=== PATIENT | male | born 1950 | race African-American/Black ===

== ENCOUNTER 2021-10-24 13:35 | Inpatient (IN) | payer MEDICARE, MEDICAID, SELFPAY ==
[2021-10-24] VITALS (7 sets, daily range): BP systolic 114–135; BP diastolic 49–67; PULSE 95–115; RESP 18–22; TEMP 36.7–37.8; O2SAT 84–99; BMI 22.1
--- NOTE | ~2021-10-24 | XR_ITS ---
EXAMINATION: XR CHEST CLINICAL INFORMATION: SOB. COMPARISON: None TECHNIQUE: Frontal view of the chest was obtained. FINDINGS: The lungs are well-expanded and clear of acute pneumonic process. There is mild atelectatic changes in the lingula. The heart size and pulmonary vascularity is normal. There is mild levoscoliosis of dorsal spine. No lytic or sclerotic process. XR/XR chest 1V IMPRESSION: Expanded lungs with minimal scarring or atelectasis in the lingula. Mild levoscoliosis upper dorsal spine.
--- NOTE | ~2021-10-24 | XR_ITS ---
EXAMINATION: XR CHEST CLINICAL INFORMATION: Hypoxia. COMPARISON: Chest 10/24/2021 TECHNIQUE: Frontal view of the chest was obtained. FINDINGS: The lungs are well-expanded with patchy opacity in the left parahilar region middle lobe and bilateral lower lobes. Rest of lungs are clear. The heart size and pulmonary vascularity is normal. There is mild spondylosis dorsal spine. No lytic process. XR/XR chest 1V IMPRESSION: Patchy airspace opacity left midlung, left lower lobe and right lower lobe. There is no suggestion for pleural effusion.
--- NOTE | 2021-10-24 14:00 | ED.GENADULT ---
HPI - General Adult General Chief complaint: Upper Respiratory Symptoms Stated complaint: CHOKED EARLIER, AIRWAY CLEAR Time Seen by Provider: 10/24/21 14:00 Source: RN notes reviewed Mode of arrival: EMS Limitations: no limitations History of Present Illness HPI narrative: Patient from [facility] with history of dementia , depression, psychosis, cognitive deficit with history of seizures came as while eating kielbasa and and had milkshake choked on it and vomited thick mucus phlegm. Patient was COVID positive 09/14/2020 again positive on 09/22/2020 has not received COVID vaccine prior to today patient was doing better on arrival patient found to be hypoxic saturating in 80s at room air improved to 90% on 5 L patient DNR DNI Related Data Home Medications Medication Instructions Recorded Confirmed acetaminophen 325 mg tablet 650 mg PO BID 10/24/21 10/24/21 acetaminophen 325 mg tablet 650 mg PO Q4H PRN 10/24/21 10/24/21 divalproex 125 mg capsule,delayed 650 mg PO BEDTIME 10/24/21 10/24/21 release sprinkle divalproex 500 mg tablet,delayed 1,000 mg PO DAILY 10/24/21 10/24/21 release docusate sodium 100 mg capsule 100 mg PO BID 10/24/21 10/24/21 (Colace) levothyroxine 125 mcg tablet 125 mcg PO DAILY 10/24/21 10/24/21 magnesium hydroxide 400 mg/5 mL 30 ml PO DAILY PRN 10/24/21 10/24/21 oral suspension (Milk of Magnesia) metoprolol tartrate 25 mg tablet 12.5 mg PO BID 10/24/21 10/24/21 mirtazapine 30 mg tablet 30 mg PO BEDTIME 10/24/21 10/24/21 multivitamin 1 tab PO DAILY 10/24/21 10/24/21 omeprazole 20 mg tablet,delayed 20 mg PO DAILY 10/24/21 10/24/21 release phenytoin sodium extended 100 mg 100 mg PO BID 10/24/21 10/24/21 capsule risperidone 0.5 mg tablet 0.5 mg PO BEDTIME 10/24/21 10/24/21 risperidone 1 mg tablet (Risperdal) 1 mg PO BID 10/24/21 10/24/21 sertraline 50 mg tablet (Zoloft) 50 mg PO DAILY 10/24/21 10/24/21 tamsulosin 0.4 mg capsule 0.4 mg PO BEDTIME 10/24/21 10/24/21 Allergies Allergy/AdvReac Type Severity Reaction Status Date / Time No Known Allergies Allergy Unverified 05/18/20 18:53 [No Known Allergies*] Review of Systems Review of Systems: Yes Unobtainable due to mental status PMFSH Past Medical History Medical History Depression Hypothyroidism Seizure TBI (traumatic brain injury) Surgical History H/O thyroidectomy Social History Social History Advance Directives: No Advance Directives Information Provided: No Physical Exam ED Vital Signs: Vital Signs - 24 hr 10/24/21 14:11 10/24/21 14:15 10/24/21 15:00 Temperature 98.1 F Pulse Rate 110 H Respiratory Rate 18 Blood Pressure 122/67 Pulse Oximetry 84 L 90 L 85 L 10/24/21 16:00 10/24/21 16:14 Temperature Pulse Rate 115 H Respiratory Rate 22 H Blood Pressure Pulse Oximetry 88 L BMI result Body Mass Index 22.1 Appearance: Alert. And awake coughing frequently Eyes: PERRL ENT: Pharynx normal. Oral Mucosa moist Neck: Normal inspection. Neck supple. CVS: Normal heart rate and rhythm. Pulses normal. Respiratory: No respiratory distress. Equal air entry bilateral, bilateral diffuse rales Abdomen: Soft and nontender. Bowel sounds are present, no mass palpable, Skin: Skin warm and dry. Normal skin color. Normal skin turgor. Extremities: No lower extremity edema. No calf tenderness Neuro: Oriented X 3. Moving all 4 extremities Medical Decision Making MDM Narrative Medical decision making narrative: Patient not backing mg COVID with history of COVID on 09/14 came here for increased shortness of breath after choking on the food chest x-ray without any significant aspiration but showed bilateral chronic changes and minimal atelectasis in the lingula COVID-19 test came positive. Patient was hypoxic on arrival improved on oxygenation. Will admit patient for hypoxia possible aspiration pneumonia and COVID-19 Lab Data Lab results reviewed: Yes I reviewed the patient's lab results. Result diagrams: 10/24/21 14:23 10/24/21 16:05 Labs: Lab Results 10/24/21 10/24/21 10/24/21 Range/Units 14:23 14:23 14:23 WBC 11.7 H (4.8-10.8) X10*3/uL RBC 3.67 L (4.60-5.80) X10*6/uL Hgb 13.4 L (14.0-18.0) g/dl Hct 39.4 L (42.0-52.0) % MCV 107.4 H (80.0-98.0) fL MCH 36.5 H (27.0-33.0) pg MCHC 34.0 (31.0-36.0) g/dl RDW 15.9 (11.0-16.0) % Plt Count 269 (160-400) X10*3/uL MPV 9.8 (9.4-12.4) fL Immature Gran % (Auto) 1.6 H (0.0-0.4) % Neut % (Auto) 80.2 H (45-73) % Lymph % (Auto) 12.9 L (20-40) % [place] % (Auto) 4.1 (2-11) % Eos % (Auto) 0.9 (0-4) % Baso % (Auto) 0.3 (0-2) % Lymph # (Auto) 1.5 (1.2-4.9) X10*3/uL [place] # (Auto) 0.5 (0.1-1.2) X10*3/uL Eos # (Auto) 0.1 (0.0-0.4) X10*3/uL Baso # (Auto) 0.0 (0.0-0.2) X10*3/uL Abs Immat Gran (auto) 0.19 H (0.00-0.03) X10*3/uL Absolute Neuts (auto) 9.4 H (2.0-8.3) x10*3/uL Absolute Nucleated RBC 0.020 H (0.0-0.012) X10*3/uL Nucleated RBC % (auto) 0.2 (0.0-0.2) /100WBC Sodium (135-145) mmol/L Potassium (3.3-5.1) mmol/L Chloride (96-108) mmol/L Carbon Dioxide (22-29) mmol/L Anion Gap (12-20) BUN (9-16) mg/dL Creatinine (0.5-1.4) mg/dL Estim Creat Clear Calc Estimated GFR Random Glucose (60-115) mg/dL Calcium (8.4-10.2) mg/dL Total Bilirubin (0.0-1.0) mg/dL AST (5-37) U/L ALT (0-40) U/L Alkaline Phosphatase (39-117) U/L Troponin I High Sens 8.8 (<3.5-35.0) ng/L Total Protein (6.5-8.0) g/dL Albumin (3.5-5.0) g/dL COVID-19 (SRINIVASAN) Positive A (Negative) COVID-19 Clin Com See Note 10/24/21 Range/Units 16:05 WBC (4.8-10.8) X10*3/uL RBC (4.60-5.80) X10*6/uL Hgb (14.0-18.0) g/dl Hct (42.0-52.0) % MCV (80.0-98.0) fL MCH (27.0-33.0) pg MCHC (31.0-36.0) g/dl RDW (11.0-16.0) % Plt Count (160-400) X10*3/uL MPV (9.4-12.4) fL Immature Gran % (Auto) (0.0-0.4) % Neut % (Auto) (45-73) % Lymph % (Auto) (20-40) % [place] % (Auto) (2-11) % Eos % (Auto) (0-4) % Baso % (Auto) (0-2) % Lymph # (Auto) (1.2-4.9) X10*3/uL [place] # (Auto) (0.1-1.2) X10*3/uL Eos # (Auto) (0.0-0.4) X10*3/uL Baso # (Auto) (0.0-0.2) X10*3/uL Abs Immat Gran (auto) (0.00-0.03) X10*3/uL Absolute Neuts (auto) (2.0-8.3) x10*3/uL Absolute Nucleated RBC (0.0-0.012) X10*3/uL Nucleated RBC % (auto) (0.0-0.2) /100WBC Sodium 143 (135-145) mmol/L Potassium 4.3 (3.3-5.1) mmol/L Chloride 108 (96-108) mmol/L Carbon Dioxide 25 (22-29) mmol/L Anion Gap 14 (12-20) BUN 14 (9-16) mg/dL Creatinine 0.78 (0.5-1.4) mg/dL Estim Creat Clear Calc 78.6 Estimated GFR > 60 Random Glucose 136 H (60-115) mg/dL Calcium 9.1 (8.4-10.2) mg/dL Total Bilirubin 0.6 (0.0-1.0) mg/dL AST 17 (5-37) U/L ALT < 6 (0-40) U/L Alkaline Phosphatase 91 (39-117) U/L Troponin I High Sens (<3.5-35.0) ng/L Total Protein 7.6 (6.5-8.0) g/dL Albumin 3.6 (3.5-5.0) g/dL COVID-19 (SRINIVASAN) (Negative) COVID-19 Clin Com ECG Data Attestation: I personally reviewed and interpreted this ECG as follows: Interpretation: Sinus tachycardia heart rate 104 beats per minute LVH with ST T wave change no acute ischemia Discharge Plan Discharge Clinical Impression: Aspiration pneumonia, COVID-19, Acute respiratory failure with hypoxia Patient Disposition: Admitted As Inpatient Discharge Date/Time: 10/24/21 19:15
--- NOTE | 2021-10-24 14:11 | ECG_ITS ---
Test Reason : aspiration Blood Pressure : / mmHG Vent. Rate : 104 BPM Atrial Rate : 104 BPM P-R Int : 154 ms QRS Dur : 086 ms QT Int : 330 ms P-R-T Axes : 083 062 083 degrees QTc Int : 433 ms Sinus tachycardia Left ventricular hypertrophy with repolarization abnormality ( Pierce product ) Abnormal ECG When compared with ECG of 14-JAN-2015 10:16, No significant change was found Referred By: José Miguel Helton Electronically Signed By:SHALOM SAMANO
[2021-10-24 14:27] LABS: MANUAL DIFF FLAG NO
[2021-10-24 14:30] LABS: Basophils Percent Auto 0.3 % (0-2); Eosinophils Absolute Auto 0.1 X10*3/uL (0.0-0.4); Eosinophils Percent Auto 0.9 % (0-4); Hematocrit 39.4 % (42.0-52.0); Hemoglobin 13.4 g/dl (14.0-18.0); Imm Gran Abs Auto 0.19 X10*3/uL (0.00-0.03); Imm Gran Pct Auto 1.6 % (0.0-0.4); Lymphocytes Absolute Auto 1.5 X10*3/uL (1.2-4.9); Lymphocytes Percent Auto 12.9 % (20-40); Mean Corpuscular Hemoglobin 36.5 pg (27.0-33.0); Mean Corpuscular Volume 107.4 fL (80.0-98.0); Mean Platelet Volume 9.8 fL (9.4-12.4); Monocytes Absolute Auto 0.5 X10*3/uL (0.1-1.2); Monocytes Percent Auto 4.1 % (2-11); NRBC Pct Auto 0.2 /100WBC (0.0-0.2); Neutrophils Absolute Auto 9.4 x10*3/uL (2.0-8.3); Neutrophils Percent Auto 80.2 % (45-73); Platelet Count 269 X10*3/uL (160-400); Red Blood Count 3.67 X10*6/uL (4.60-5.80); Red Cell Distribution Width 15.9 % (11.0-16.0); White Blood Count 11.7 X10*3/uL (4.8-10.8)
--- NOTE | 2021-10-24 14:30 | PHA.MEDREC ---
Pharmacy Consult ? Medication Reconciliation Pharmacy has completed the medication reconciliation. Patient from [facility] with a medication list. Jennifer Parsons, PiedadD
--- NOTE | 2021-10-24 14:37 | PC.NURSE ---
Pt received from EMS: Pt hx of dementia, and AOX1. As per EMS, pt aspirated on kabosha and milkshake. Pt received having intermittent, strong white, mucous cough. Suction applied, but aspiration seems to be deeper. Pt also hypoxic upon arrival, pt placed on 5L N/C, and O2 saturation improved. Sinus Tachy noted and lungs with rhonchi noted. Pt abd soft and non-tender.
[2021-10-24 14:50] LABS: Troponin-I High Sensitivity 8.8 ng/L (<3.5-35.0)
[2021-10-24 14:57] LABS: COVID-19 Test Positive (Negative); IDNOW Serial# 55D5AD1C
[2021-10-24] MEDS: Albuterol/Iprat 2.5/0.5MG 3 ML AMPUL.NEB INHALE (16:12)
--- NOTE | 2021-10-24 16:46 | PM.IMHP ---
History of Present Illness Date of Service: 10/24/21 Attending physician on admission: Berna Saez Chief Complaint: Choked 71 year old man presenting from [facility] with history of dementia, came in after en episode of choking after eating kielbasa and a milkshake. Apparently he walso vomited thick mucus phlegm.? Patient was COVID positive?09/14/2020 again positive on?09/22/2020 and has not yet received COVID vaccine. He was found to be hypoxic on arrival with oxygen saturation in the 80's. He was placed on 5 liters and his oxygen was up to 90's. CXR showed some atelectasis. In the ED he was given Zosyn, albuterol and decadron. He will be admitted for further management of aspiration pneumonia. Review of Systems Review of Systems: Denies any recent fever chills or decrease in appetite respiratory denies any shortness of breath coverage production cardiovascular is adjustment of any PND or edema gastrointestinal denies any dysphagia abdominal pain nausea vomiting or diarrhea genitourinary denies any dysuria frequency or hematuria musculoskeletal denies any joint pain or swelling neuropsych denies any weakness or seizures all other systems reviewed are negative PMFSH Medical History (Updated 10/24/21 @ 17:12 by Rosie Coe NP) Depression Hypothyroidism Seizure TBI (traumatic brain injury) Pertinent family history: Unknown as patient has dementia Surgical History (Updated 10/24/21 @ 17:09 by Rosie Coe NP) H/O thyroidectomy Social History Advance Directives: No Advance Directives Information Provided: No Meds Allergies Allergy/AdvReac Type Severity Reaction Status Date / Time No Known Allergies Allergy Unverified 05/18/20 18:53 [No Known Allergies*] Active Medications: Current Medications Acetaminophen (Acetaminophen 325 Mg Tablet) 650 mg PO Q6H PRN PRN Reason: Pain, Mild (Pain Scale 1-3) Dexamethasone Sodium Phosphate (Dexamethasone Sod Phosphate 4 Mg/Ml Vial) 6 mg IVPUSH DAILY SHILA Heparin Sodium (Porcine) (Heparin Sodium,Porcine 5,000 Unit/Ml Vial) 5,000 unit SUBCUT Q12H SHILA Piperacillin Sod/Tazobactam (Sod 3.375 gm/ Sodium Chloride) 50 mls @ 100 mls/hr IV ONCE ONE Stop: 10/24/21 17:06 Piperacillin Sod/Tazobactam (Sod 3.375 gm/ Sodium Chloride) 50 mls @ 100 mls/hr IV Q6H [facility] Ondansetron HCl (Ondansetron Hcl 4 Mg/2 Ml Vial) 4 mg IVPUSH Q8H PRN PRN Reason: Nausea and Vomiting Sodium Chloride (0.9 % Sodium Chloride Flush 3 Ml Syringe) 3 ml IVFLUSH QSHIFT [facility] Home Medications Medication Instructions Recorded Confirmed Last Taken Type acetaminophen 325 mg tablet 650 mg PO BID 10/24/21 10/24/21 10/24/21 History acetaminophen 325 mg tablet 650 mg PO Q4H PRN 10/24/21 10/24/21 10/11/21 History divalproex 125 mg capsule,delayed 650 mg PO BEDTIME 10/24/21 10/24/21 10/23/21 History release sprinkle divalproex 500 mg tablet,delayed 1,000 mg PO DAILY 10/24/21 10/24/21 10/24/21 History release docusate sodium 100 mg capsule 100 mg PO BID 10/24/21 10/24/21 10/24/21 History (Colace) levothyroxine 125 mcg tablet 125 mcg PO DAILY 10/24/21 10/24/21 10/24/21 History magnesium hydroxide 400 mg/5 mL 30 ml PO DAILY PRN 10/24/21 10/24/21 05/14/21 History oral suspension (Milk of Magnesia) metoprolol tartrate 25 mg tablet 12.5 mg PO BID 10/24/21 10/24/21 10/24/21 History mirtazapine 30 mg tablet 30 mg PO BEDTIME 10/24/21 10/24/21 10/23/21 History multivitamin 1 tab PO DAILY 10/24/21 10/24/21 10/24/21 History omeprazole 20 mg tablet,delayed 20 mg PO DAILY 10/24/21 10/24/21 10/24/21 History release phenytoin sodium extended 100 mg 100 mg PO BID 10/24/21 10/24/21 10/24/21 History capsule risperidone 0.5 mg tablet 0.5 mg PO BEDTIME 10/24/21 10/24/21 10/23/21 History risperidone 1 mg tablet (Risperdal) 1 mg PO BID 10/24/21 10/24/21 10/24/21 History sertraline 50 mg tablet (Zoloft) 50 mg PO DAILY 10/24/21 10/24/21 10/24/21 History tamsulosin 0.4 mg capsule 0.4 mg PO BEDTIME 10/24/21 10/24/21 10/23/21 History Physical Exam Vital Signs and Narrative: Vital Signs: Last Vital Signs Temp 98.1 F 10/24/21 14:11 Pulse 115 H 10/24/21 16:14 Resp 22 H 10/24/21 16:14 BP 122/67 10/24/21 14:11 Pulse Ox 88 L 10/24/21 16:00 BMI result Body Mass Index 22.1 Appearing in no acute distress head is normocephalic atraumatic eyes pupils are PERRLA sclera is anicteric mouth throat mucous membranes are intact and moist neck is supple no lymphadenopathy, no JVD noted, no palpable masses lung sounds are clear to auscultation/dim heart regular rate rhythm, clear S1, S2 positive bowel sounds, abdomen is soft, nontender neuro patient is alert to person only Results Labs CBC and Chem 7: 10/24/21 14:23 10/24/21 14:23 Labs: Laboratory Results - last 24 hr 10/24/21 10/24/21 14:23 14:23 MCV 107.4 H MCH 36.5 H MCHC 34.0 RDW 15.9 Plt Count 269 MPV 9.8 Immature Gran % (Auto) 1.6 H Neut % (Auto) 80.2 H Lymph % (Auto) 12.9 L [place] % (Auto) 4.1 Eos % (Auto) 0.9 Baso % (Auto) 0.3 Lymph # (Auto) 1.5 [place] # (Auto) 0.5 Eos # (Auto) 0.1 Baso # (Auto) 0.0 Abs Immat Gran (auto) 0.19 H Absolute Neuts (auto) 9.4 H Absolute Nucleated RBC 0.020 H Nucleated RBC % (auto) 0.2 COVID-19 (SRINIVASAN) Positive A COVID-19 Clin Com See Note Imaging Radiologist's Impressions: Impressions Chest X-Ray 10/24/21 14:55 IMPRESSION: Expanded lungs with minimal scarring or atelectasis in the lingula. Mild levoscoliosis upper dorsal spine. Assessment and Plan (1) Aspiration pneumonia: Status: Acute Plan 71 year old man admitted after an episode of choking and maikol has aspiration pneumonia Acute hypoxic respiratory failure secondary to aspiration pneumonitis likely related to choking cover with zosyn follow cx speech evaluation supplemental oxygen Covid 19 Diagnosed 09/14/21 Decadron ordered late for remdesivir follow Hypothyroidism Continue levothyroxine Seizures continue dilantin seizure precautions GERD PPI Mental health continue home medications DVT prophylaxis with heparin Attending Dr. Jaime DNR Quality Stroke Does the patient have a stroke diagnosis?: No VTE Prior VTE?: No VTE Risk Level:: Medical - moderate - high VTE Device Contraindication: Treatment Not Indicated VTE Drug Contraindication: N/A - Med Ordered
[2021-10-24] MEDS: dexAMETHasone sod phosphate 4 MG/ML VIAL 6 MG IVPUSH (17:10)
[2021-10-24 17:16] LABS: Alanine Aminotransferase < 6 U/L (0-40); Albumin Level 3.6 g/dL (3.5-5.0); Alkaline Phosphatase 91 U/L (39-117); Anion Gap 14 (12-20); Aspartate Amino Transferase 17 U/L (5-37); Bilirubin Total 0.6 mg/dL (0.0-1.0); Blood Urea Nitrogen 14 mg/dL (9-16); Calcium 9.1 mg/dL (8.4-10.2); Carbon Dioxide 25 mmol/L (22-29); Chloride 108 mmol/L (96-108); Creatinine Clr Calc Pharmacy 78.6; Estimated Glomerular Filt Rate > 60; Glucose Random 136 mg/dL (60-115); Potassium 4.3 mmol/L (3.3-5.1); Sodium 143 mmol/L (135-145); Total Protein 7.6 g/dL (6.5-8.0)
[2021-10-24] MEDS: Piperacillin Sodium/Tazobactam 3.375 GM in 0.9 % Sodium Chloride 50 ML IV (17:26)
--- NOTE | 2021-10-24 17:36 | PC.NURSE ---
Verified with phlebotomy, B/Cx2 and lactic acid retrieved prior to IV ABT administration.
[2021-10-24 17:39] LABS: Lactic Acid 1.6 mmol/L (0.5-2.0)
[2021-10-24] MEDS: Heparin Sodium,Porcine 5,000 UNIT/ML VIAL 5000 UNIT SUBCUT (18:00)
--- NOTE | 2021-10-24 19:16 | PC.NURSE ---
Assumed care of pt at 1900, report given to inpatient RN shortly thereafter. Pt to floor in stable condition w/ all belongings, attached to portable monitor, 5L O2 via NC
[2021-10-25] VITALS (7 sets, daily range): BP systolic 111–140; BP diastolic 51–59; PULSE 78–98; RESP 16–20; TEMP 35.7–36.8; O2SAT 93–100
[2021-10-25] MEDS: 0.9 % Sodium Chloride Flush 3 ML SYRINGE IVFLUSH ×5 (00:37→21:35)
[2021-10-25] MEDS: Piperacillin Sodium/Tazobactam 3.375 GM in 0.9 % Sodium Chloride 50 ML IV ×5 (00:43→23:39)
[2021-10-25] MEDS: Acetaminophen 325 MG TABLET 650 MG PO (00:46)
[2021-10-25] MEDS: Heparin Sodium,Porcine 5,000 UNIT/ML VIAL 5000 UNIT SUBCUT ×2 (05:31→17:16)
[2021-10-25 06:22] LABS: Hemoglobin 13.1 g/dl (14.0-18.0); Mean Corpuscular HGB Conc 34.5 g/dl (31.0-36.0); Mean Corpuscular Hemoglobin 36.3 pg (27.0-33.0); Mean Corpuscular Volume 105.3 fL (80.0-98.0); Mean Platelet Volume 10.4 fL (9.4-12.4); Platelet Count 238 X10*3/uL (160-400); Red Blood Count 3.61 X10*6/uL (4.60-5.80); Red Cell Distribution Width 15.8 % (11.0-16.0); White Blood Count 16.5 X10*3/uL (4.8-10.8)
[2021-10-25 06:32] LABS: Anion Gap 17 (12-20); Blood Urea Nitrogen 19 mg/dL (9-16); Calcium 9.4 mg/dL (8.4-10.2); Carbon Dioxide 27 mmol/L (22-29); Chloride 106 mmol/L (96-108); Creatinine Clr Calc Pharmacy 68.9; Estimated Glomerular Filt Rate > 60; Glucose Random 142 mg/dL (60-115); Potassium 4.9 mmol/L (3.3-5.1); Sodium 145 mmol/L (135-145)
[2021-10-25 06:44] LABS: Band Neutrophils Percent 30 % (3-5); Lymphocytes Absolute Manual 0.5 X10*3/uL (1.2-4.9); Lymphocytes Percent Manual 3 % (20-40); Metamyelocytes Absolute 0.2 X10*3/uL; Metamyelocytes Percent 1 %; Neutrophils Absolute Manual 15.8 X10*3/uL (2.0-8.3); Neutrophils Percent Manual 66 % (45-73)
[2021-10-25 06:46] LABS: Hypochromasia 1+ (5-14) /OIF; Macrocytosis 2+ (15-30) /OIF; Platelet Estimate NORMAL (NORMAL); Platelet Morphology Comment NORMAL; RBC Morphology NOTED; Target Cells 1+ (5-14) /OIF; Toxic Vacuolation PRESENT
[2021-10-25] MEDS: dexAMETHasone sod phosphate 4 MG/ML VIAL 6 MG IVPUSH (07:59)
[2021-10-25] MEDS: Divalproex Sodium 500 MG TABLET.DR 1000 MG PO (11:05)
[2021-10-25] MEDS: Metoprolol Tartrate 12.5 MG HALFTAB PO ×2 (11:05→21:24)
--- NOTE | 2021-10-25 11:16 | PC.NURSE ---
some coughing with meds crushed in applesauce. Seems to do ok with thin liquids.
--- NOTE | 2021-10-25 12:40 | MHC.CM.PN ---
IMM 10/25/21 Male 72 DX Aspiration PNA Covid+ LTC resident @ [facility]. He is a DNR/DNI. The Molst is on Paper chart. It is documented no return to hospital. He choked while eating. [place] [facility] At the time of this documentation T/W has not spoken with family. A VM was left for his . Information for CM assessment and documentation was obtained from the patients EMR as well as paper chart w SNF documentation. DP return to [facility] via ambulance. A return call was requested to discuss discharge planning. The son was also unavailable via phone # on file. CM will follow.
--- NOTE | 2021-10-25 15:50 | P.PNIM_ITS ---
Subjective Subjective Date of Service: 10/25/21 <ROMERO Reeves - Last Filed: 10/25/21 16:06> 10/26/21 <Irving Mercado MD - Last Filed: 10/26/21 15:56> Interval History: seen and examined this morning follow up for respiratory failure awake and alert, able to answer some simple questions denies any pain or difficulty breathing at this time, unclear how reliable he is as historian, but appears comfortable and in no distress <ROMERO Reeves - Last Filed: 10/25/21 16:06> Review of Systems Review of Systems: Yes all other systems are reviewed and are negative <ROMERO Reeves - Last Filed: 10/25/21 16:06> Constitutional Constitutional: Denies chills and Denies fever(s) <ROMERO Reeves - Last Filed: 10/25/21 16:06> Cardiovascular Cardiovascular: Denies chest pain and Denies dyspnea <ROMERO Reeves - Last Filed: 10/25/21 16:06> Respiratory Respiratory: Reports cough and Denies dyspnea <ROMERO Reeves - Last Filed: 10/25/21 16:06> Gastrointestinal Gastrointestinal: Denies abdominal pain <ROMERO Reeves - Last Filed: 10/25/21 16:06> Physical Exam Vital Signs: Vital Signs: Last Vital Signs Temp 98.3 F 10/25/21 15:17 Pulse 88 10/25/21 15:17 Resp 20 10/25/21 15:17 BP 111/51 L 10/25/21 15:17 Pulse Ox 99 10/25/21 15:17 BMI result Body Mass Index 22.1 <ROMERO Reeves - Last Filed: 10/25/21 16:06> Const: Other: sleeping on entering, but easily arousable to verbal stimuli <ROMERO Reeves Last Filed: 10/25/21 16:06> General: comfortable, no acute distress and ill appearing <ROMERO Reeves Last Filed: 10/25/21 16:06> Nutritional Appearance: thin <ROMERO Reeves - Last Filed: 10/25/21 16:06> Orientation/consciousness: oriented to person <ROMERO Reeves - Last Filed: 10/25/21 16:06> Resp: Effort & Inspection: normal respiratory effort and no respiratory distress <ROMERO Reeves Last Filed: 10/25/21 16:06> GI: Inspection: No distended <ROMERO Reeves Last Filed: 0 10/25/21 16:06> Palpation (GI): Soft to palpation and nontender <ROMERO Reeves - Last Filed: 10/25/21 16:06> : Other: melton present <ROMERO Reeves Last Filed: 10/25/21 16:06> Neuro: General: oriented to person <ROMERO Reeves Last Filed: 10/25/21 16:06> Objective Data Active Medications Acetaminophen (Acetaminophen 325 Mg Tablet) 650 mg PO Q6H PRN PRN Reason: Pain, Mild (Pain Scale 1-3) Last Admin: 10/25/21 00:46 Dose: 650 mg Documented by: WAYLON Dexamethasone Sodium Phosphate (Dexamethasone Sod Phosphate 4 Mg/Ml Vial) 6 mg IVPUSH DAILY [facility] Last Admin: 10/25/21 07:59 Dose: 6 mg Documented by: ANDERS Divalproex Sodium (Divalproex Sodium 500 Mg Ana Luisa.) 1,000 mg PO DAILY [facility] Last Admin: 10/25/21 11:05 Dose: 1,000 mg Documented by: ANDERS Divalproex Sodium (Divalproex Sodium Sprinkles 125 Mg Cap) 625 mg PO BEDTIME [facility] Heparin Sodium (Porcine) (Heparin Sodium,Porcine 5,000 Unit/Ml Vial) 5,000 unit SUBCUT Q12H [facility] Last Admin: 10/25/21 05:31 Dose: 5,000 unit Documented by: OMAR Piperacillin Sod/Tazobactam (Sod 3.375 gm/ Sodium Chloride) 50 mls @ 100 mls/hr IV Q6H [facility] Last Infusion: 10/25/21 12:29 Dose: 0 mls/hr Documented by: ANDERS Levothyroxine Sodium (Levothyroxine Sodium 125 Mcg Tablet) 125 mcg PO DAILY [facility] Metoprolol Tartrate (Metoprolol Tartrate 12.5 Mg Halftab) 12.5 mg PO BID [facility]; Protocol Last Admin: 10/25/21 11:05 Dose: 12.5 mg Documented by: ANDERS Mirtazapine (Mirtazapine 30 Mg Tablet) 30 mg PO BEDTIME [facility] Omeprazole (Omeprazole 20 Mg Capsule.Dr) 20 mg PO DAILY [facility] Ondansetron HCl (Ondansetron Hcl 4 Mg/2 Ml Vial) 4 mg IVPUSH Q8H PRN PRN Reason: Nausea and Vomiting Phenytoin Sodium (Phenytoin Sodium Extended 100 Mg Capsule) 100 mg PO BID [facility] Risperidone (Risperidone 1 Mg Tablet) 1 mg PO BID [facility] Risperidone (Risperidone 0.5 Mg Tablet) 0.5 mg PO BEDTIME [facility] Sertraline HCl (Sertraline Hcl 50 Mg Tablet) 50 mg PO DAILY [facility] Sodium Chloride (0.9 % Sodium Chloride Flush 3 Ml Syringe) 3 ml IVFLUSH QSHIFT [facility] Last Admin: 10/25/21 08:01 Dose: 3 ml Documented by: ANDERS Tamsulosin HCl (Tamsulosin Hcl 0.4 Mg Capsule) 0.4 mg PO BEDTIME [facility] <ROMERO Reeves - Last Filed: 10/25/21 16:06> Labs CBC & Chem 7: : 10/26/21 06:05 10/26/21 06:05 <ROMERO Reeves - Last Filed: 10/25/21 16:06> Labs: Laboratory Results - last 24 hr 10/24/21 10/24/21 10/25/21 16:05 17:17 06:08 MCV 105.3 H MCH 36.3 H MCHC 34.5 RDW 15.8 Plt Count 238 MPV 10.4 Immature Gran % (Auto) Cancelled Neut % (Auto) Cancelled Lymph % (Auto) Cancelled [place] % (Auto) Cancelled Eos % (Auto) Cancelled Baso % (Auto) Cancelled Lymph # (Auto) Cancelled [place] # (Auto) Cancelled Eos # (Auto) Cancelled Baso # (Auto) Cancelled Abs Immat Gran (auto) Cancelled Absolute Neuts (auto) Cancelled Absolute Nucleated RBC 0.000 Nucleated RBC % (auto) 0.0 Neutrophils % (Manual) 66 Band Neutrophils % 30 H Lymphocytes % (Manual) 3 L Metamyelocytes % 1 Abs Neuts (Manual) 15.8 H Lymphocytes # (Manual) 0.5 L Metamyelocytes # 0.2 Toxic Vacuolation PRESENT Platelet Estimate NORMAL Plt Morphology Comment NORMAL RBC Morphology NOTED Hypochromasia 1+ (5-14) Macrocytosis 2+ (15-30) Target Cells 1+ (5-14) Anion Gap 14 Estim Creat Clear Calc 78.6 Estimated GFR > 60 Random Glucose 136 H Lactic Acid 1.6 Calcium 9.1 Total Bilirubin 0.6 AST 17 ALT < 6 Alkaline Phosphatase 91 Total Protein 7.6 Albumin 3.6 10/25/21 06:08 MCV MCH MCHC RDW Plt Count MPV Immature Gran % (Auto) Neut % (Auto) Lymph % (Auto) [place] % (Auto) Eos % (Auto) Baso % (Auto) Lymph # (Auto) [place] # (Auto) Eos # (Auto) Baso # (Auto) Abs Immat Gran (auto) Absolute Neuts (auto) Absolute Nucleated RBC Nucleated RBC % (auto) Neutrophils % (Manual) Band Neutrophils % Lymphocytes % (Manual) Metamyelocytes % Abs Neuts (Manual) Lymphocytes # (Manual) Metamyelocytes # Toxic Vacuolation Platelet Estimate Plt Morphology Comment RBC Morphology Hypochromasia Macrocytosis Target Cells Anion Gap 17 Estim Creat Clear Calc 68.9 Estimated GFR > 60 Random Glucose 142 H Lactic Acid Calcium 9.4 Total Bilirubin AST ALT Alkaline Phosphatase Total Protein Albumin <ROMERO Reeves - Last Filed: 10/25/21 16:06> Assessment and Plan (1) Acute respiratory failure with hypoxia: Status: Acute <ROMERO Reeves - Last Filed: 10/25/21 16:06> (2) Aspiration pneumonia: Status: Acute <ROMERO Reeves - Last Filed: 10/25/21 16:06> Plan 71 year old man admitted after an episode of choking and chinaley has aspiration pneumonia Acute hypoxic respiratory failure secondary to aspiration pneumonitis likely related to choking episode continue IV zosyn blood cultures pending speech evaluation pending supplemental oxygen, wean as tolerated Covid 19 Diagnosed 09/14/21, still testing positive can continue Decadron for now late for remdesivir ID consult pending leukocytosis r/t steroids ?HTN continue lopressor Hypothyroidism Continue levothyroxine Seizure disorder continue dilantin, depakote seizure precautions will check levels in am GERD continue omeprazole Mood continue sertraline, risperidone, remeron BPH continue flomax DVT prophylaxis with heparin Attending Dr. Mercado DNR/DNI <ROMERO Reeves - Last Filed: 10/25/21 16:06> Quality Stroke Does the patient have a stroke diagnosis?: No <ROMERO Reeves - Last Filed: 10/25/21 16:06> VTE Prior VTE?: No <ROMERO Reeves - Last Filed: 10/25/21 16:06> VTE Risk Level:: Medical - moderate - high <ROMERO Reeves - Last Filed: 10/25/21 16:06> VTE Device Contraindication: Treatment Not Indicated <ROMERO Reeves - Last Filed: 10/25/21 16:06> VTE Drug Contraindication: N/A - Med Ordered <ROMERO Reeves - Last Filed: 10/25/21 16:06>
--- NOTE | 2021-10-25 17:49 | MHC.SL.SWA ---
Risk of Aspiration Due to: Neurological Condition History of Pneumonia Reduced Cognition Dysphasia Diet Status: Downgrade Liquid Consistency and Strategies for Safe Swallow: Liquid Intake Recommendation: Thin Liquid Intake Strategies: Small Sips No Straws Solid Food Consistency: Dietary Recommendations: NPO Additional Modifications to Solid Foods: Patient seen for bedside dysphagia evaluation this evening. Patient tolerated thin liquids with no overt s/s of aspiration. He was able to hold and sip from the cup himself. Patient exhibited difficulty swallowing soft solids. Patient displayed oral holding, pocketing, reduced awareness of bolus. He was given several sips of water to clear pocketed applesauce.Recommend liquids only- THIN liquids with 1:1 assistance and aspiration precautions. Recommend consider medications to be administered in liquid form or intravenously whenever possible- Pills that must be given PO to be crushed when possible and administered with caution- administer small bites, check patient's mouth for clearance, follow bite with several sips of water to clear. AGENCY OWNER to re-evaluate tomorrow morning. Oral Medication Intake: Crushed with Puree Please contact the pharmacy regarding appropriate crushable or liquid drug formulations that are available whenever modified delivery is recommended. Compensatory Strategies and Precautions to be Taken for Safe Swallow: No Straw Small Bites and Sips Alternate Liquids/Solids Oral Check Supervision While Eating and Drinking for Safe Swallow: Total Assistance (1:1) Swallowing Recommended Treatments: Compens. Strategy Educat. Recommendation for Speech: Inpatient Speech Therapy Comment: AGENCY OWNER to follow M-F Creative Services Designer Clinican/Clinical Fellow: No Supervisory Statement: I have reviewed and agree with the student/clinical fellow's documentation: N/A Speech Language Pathologist: Malgorzata Chiang M.A., [facility]-AGENCY OWNER
[2021-10-25] MEDS: Phenytoin Chewable 50 MG TAB.CHEW 100 MG PO (21:23)
[2021-10-25] MEDS: risperiDONE 1 MG TABLET PO (21:24)
[2021-10-25] MEDS: risperiDONE 0.5 MG TABLET PO (21:24)
[2021-10-25] MEDS: Mirtazapine 30 MG TABLET PO (21:24)
[2021-10-26 03:12] VITALS: BP 141/60; PULSE 80; RESP 20; TEMP 36.1; O2SAT 95
[2021-10-26] MEDS: Heparin Sodium,Porcine 5,000 UNIT/ML VIAL 5000 UNIT SUBCUT ×2 (05:27→17:32)
[2021-10-26] MEDS: Piperacillin Sodium/Tazobactam 3.375 GM in 0.9 % Sodium Chloride 50 ML IV ×3 (05:27→17:32)
[2021-10-26 06:19] LABS: Hematocrit 33.1 % (42.0-52.0); Hemoglobin 11.6 g/dl (14.0-18.0); Mean Corpuscular Hemoglobin 37.2 pg (27.0-33.0); Mean Corpuscular Volume 106.1 fL (80.0-98.0); Mean Platelet Volume 10.4 fL (9.4-12.4); Platelet Count 200 X10*3/uL (160-400); Red Blood Count 3.12 X10*6/uL (4.60-5.80); White Blood Count 16.2 X10*3/uL (4.8-10.8)
[2021-10-26 06:35] LABS: Anion Gap 13 (12-20); Blood Urea Nitrogen 15 mg/dL (9-16); Calcium 8.8 mg/dL (8.4-10.2); Carbon Dioxide 28 mmol/L (22-29); Chloride 104 mmol/L (96-108); Creatinine Clr Calc Pharmacy 81.7; Estimated Glomerular Filt Rate > 60; Glucose Random 162 mg/dL (60-115); Potassium 3.8 mmol/L (3.3-5.1); Sodium 141 mmol/L (135-145)
[2021-10-26 07:06] LABS: Phenytoin Dilantin 6.3 ug/mL (10.0-20.0); Valproate 41.8 mcg/mL (50.0-100.0)
[2021-10-26 07:44] VITALS: BP 120/58; PULSE 94; RESP 18; TEMP 37.3; O2SAT 100
[2021-10-26] MEDS: dexAMETHasone sod phosphate 4 MG/ML VIAL 6 MG IVPUSH (09:27)
[2021-10-26] MEDS: 0.9 % Sodium Chloride Flush 3 ML SYRINGE IVFLUSH ×3 (09:27→20:47)
[2021-10-26] MEDS: Levothyroxine Sodium 125 MCG TABLET PO (09:30)
[2021-10-26] MEDS: risperiDONE 1 MG TABLET PO ×2 (09:30→20:45)
[2021-10-26] MEDS: Sertraline HCL 50 MG TABLET PO (09:30)
[2021-10-26] MEDS: Phenytoin Chewable 50 MG TAB.CHEW 100 MG PO ×2 (09:30→20:44)
[2021-10-26] MEDS: Metoprolol Tartrate 12.5 MG HALFTAB PO ×2 (09:30→20:45)
[2021-10-26 11:27] VITALS: BP 120/59; PULSE 80; RESP 18; TEMP 37.6; O2SAT 99
--- NOTE | 2021-10-26 13:35 | MHC.SL.SWA ---
Risk of Aspiration Due to: Neurological Condition History of Pneumonia Reduced Cognition Dysphasia Diet Status: Upgrade Liquid Consistency and Strategies for Safe Swallow: Liquid Intake Recommendation: Thin Liquid Intake Strategies: Small Sips No Straws Solid Food Consistency: Dietary Recommendations: Pureed (NDD1) Patient is a 71 year old male who comes from [facility]. Patient had choked on kielbasa and milkshake, vomited thick mucus phlegm. He was found to be COVID positive. Patient was admitted for aspiration pneumonia, COVID19, acute respiratory failure with hypoxia. Moderate oropharyngeal dysphagia characterized by delayed AP transport, delayed pharyngeal swallow trigger, pocketing. Recommend PUREED (NDD1) solids and THIN liquids, pills CRUSHED in PUREE. Patient must be awake and alert for meals. Minimize distractions. May need to hold tray if patient is lethargic. Administer small bites, check oral cavity, and wash residue with sips of liquid as needed. Recommend 1:1 assistance, aspiration precautions, and close monitoring for any s/s of aspiration. Diet order updated by HOSEMAN. HOSEMAN will continue to follow. Oral Medication Intake: Crushed with Puree Please contact the pharmacy regarding appropriate crushable or liquid drug formulations that are available whenever modified delivery is recommended. Compensatory Strategies and Precautions to be Taken for Safe Swallow: Sitting Upright (90 deg) No Straw Small Bites and Sips Alternate Liquids/Solids Rate of Ingestion Change Oral Check Supervision While Eating and Drinking for Safe Swallow: Total Assistance (1:1) Swallowing Recommended Treatments: Compens. Strategy Educat. Recommendation for Speech: Inpatient Speech Therapy Transformation Architect Clinican/Clinical Fellow: No Supervisory Statement: I have reviewed and agree with the student/clinical fellow's documentation: N/A Speech Language Pathologist: Malgorzata Chiang M.A., [facility]
--- NOTE | 2021-10-26 13:52 | P.PNIM_ITS ---
Subjective Subjective Date of Service: 10/26/21 Interval History: seen and examined this morning awake, alert and able to answer simple questions denies shortness of breath, abdominal pain or chest pain Review of Systems Review of Systems: Yes all other systems are reviewed and are negative Cardiovascular Cardiovascular: Denies chest pain and Denies dyspnea Respiratory Respiratory: Denies dyspnea Gastrointestinal Gastrointestinal: Denies abdominal pain Physical Exam Vital Signs: Vital Signs: Last Vital Signs Temp 99.6 F 10/26/21 11:27 Pulse 80 10/26/21 11:27 Resp 18 10/26/21 11:27 BP 120/59 L 10/26/21 11:27 Pulse Ox 99 10/26/21 11:27 BMI result Body Mass Index 22.1 Const: General: comfortable, no acute distress and ill appearing Nutritional Appearance: thin Orientation/consciousness: oriented to person Resp: Effort & Inspection: normal respiratory effort and no respiratory dis tress GI: Inspection: No distended Palpation (GI): Soft to palpation and nontender : Other: melton present Neuro: General: oriented to person Objective Data Active Medications Acetaminophen (Acetaminophen 325 Mg Tablet) 650 mg PO Q6H PRN PRN Reason: Pain, Mild (Pain Scale 1-3) Last Admin: 10/25/21 00:46 Dose: 650 mg Documented by: WAYLON Dexamethasone Sodium Phosphate (Dexamethasone Sod Phosphate 4 Mg/Ml Vial) 6 mg IVPUSH DAILY [facility] Last Admin: 10/26/21 09:27 Dose: 6 mg Documented by: TERRANCE Heparin Sodium (Porcine) (Heparin Sodium,Porcine 5,000 Unit/Ml Vial) 5,000 unit SUBCUT Q12H [facility] Last Admin: 10/26/21 05:27 Dose: 5,000 unit Documented by: OSWALD Piperacillin Sod/Tazobactam (Sod 3.375 gm/ Sodium Chloride) 50 mls @ 100 mls/hr IV Q6H [facility] Last Infusion: 10/26/21 13:17 Dose: 0 mls/hr Documented by: TERRANCE Levothyroxine Sodium (Levothyroxine Sodium 125 Mcg Tablet) 125 mcg PO DAILY [facility] Last Admin: 10/26/21 09:30 Dose: 125 mcg Documented by: TERRANCE Metoprolol Tartrate (Metoprolol Tartrate 12.5 Mg Halftab) 12.5 mg PO BID [facility]; Protocol Last Admin: 10/26/21 09:30 Dose: 12.5 mg Documented by: TERRANCE Mirtazapine (Mirtazapine 30 Mg Tablet) 30 mg PO BEDTIME [facility] Last Admin: 10/25/21 21:24 Dose: 30 mg Documented by: OSWALD Omeprazole (Omeprazole 20 Mg/10 Ml Susp.Recon) 20 mg PO DAILY@0630 [facility] Last Admin: 10/26/21 05:40 Dose: 20 mg Documented by: OSWALD Ondansetron HCl (Ondansetron Hcl 4 Mg/2 Ml Vial) 4 mg IVPUSH Q8H PRN PRN Reason: Nausea and Vomiting Phenytoin (Phenytoin Chewable 50 Mg Tab.Chew) 100 mg PO BID [facility] Last Admin: 10/26/21 09:30 Dose: 100 mg Documented by: TERRANCE Risperidone (Risperidone 1 Mg Tablet) 1 mg PO BID [facility] Last Admin: 10/26/21 09:30 Dose: 1 mg Documented by: TERRANCE Risperidone (Risperidone 0.5 Mg Tablet) 0.5 mg PO BEDTIME [facility] Last Admin: 10/25/21 21:24 Dose: 0.5 mg Documented by: OSWALD Sertraline HCl (Sertraline Hcl 50 Mg Tablet) 50 mg PO DAILY [facility] Last Admin: 10/26/21 09:30 Dose: 50 mg Documented by: TERRANCE Sodium Chloride (0.9 % Sodium Chloride Flush 3 Ml Syringe) 3 ml IVFLUSH [facility] Last Admin: 10/26/21 09:27 Dose: 3 ml Documented by: TERRANCE Tamsulosin HCl (Tamsulosin Hcl 0.4 Mg Capsule) 0.4 mg PO BEDTIME [facility] Valproic Acid (Valproic Acid (As Sodium Salt) 250 Mg/5 Ml Solution) 500 mg PO BID [facility] Last Admin: 10/26/21 09:27 Dose: 500 mg Documented by: TERRANCE Valproic Acid (Valproic Acid (As Sodium Salt) 250 Mg/5 Ml Solution) 625 mg PO DAILY@1200 [facility] Last Admin: 10/26/21 12:26 Dose: 625 mg Documented by: TERRANCE Labs CBC & Chem 7: 10/26/21 06:05 10/26/21 06:05 Labs: Laboratory Results - last 24 hr 02/25/22 02/25/22 02/25/22 06:05 06:05 06:05 MCV 106.1 H MCH 37.2 H MCHC 35.0 RDW 16.0 Plt Count 200 MPV 10.4 Absolute Nucleated RBC 0.000 Nucleated RBC % (auto) 0.0 Anion Gap 13 Estim Creat Clear Calc 81.7 Estimated GFR > 60 Random Glucose 162 H Calcium 8.8 D Phenytoin 6.3 L* Valproic Acid 41.8 L Microbiology Microbiology Results: Microbiology 10/24/21 17:17 Blood Culture - Preliminary Blood - Venous No growth after 24 hours. 10/24/21 17:17 Blood Culture - Preliminary Blood - Venous No growth after 24 hours. Assessment and Plan (1) Acute respiratory failure with hypoxia: Status: Acute (2) Aspiration pneumonia: Status: Acute Plan 71 year old man admitted after an episode of choking and maikol has aspiration pneumonia Acute hypoxic respiratory failure secondary to aspiration pneumonia likely related to choking episode/oropharyngeal dysphagia continue IV zosyn blood cultures negative to date seen by speech - rec Pureed diet with thin liqs and pills crushed in puree; see full speech eval for details aspiration precautions supplemental oxygen, wean as tolerated Covid 19 Diagnosed 09/14/21, still testing positive can continue Decadron for now late for remdesivir ID consult pending leukocytosis r/t steroids ?HTN continue lopressor Hypothyroidism Continue levothyroxine Seizure disorder continue dilantin, depakote seizure precautions medications changed to crushable/liquid formulations for now GERD continue omeprazole Mood continue sertraline, risperidone, remeron BPH continue flomax DVT prophylaxis with heparin Attending Dr. Lao DNR/DNI Dispo: to return to [facility] when medically ready Quality Stroke Does the patient have a stroke diagnosis?: No VTE Prior VTE?: No VTE Risk Level:: Medical - moderate - high VTE Device Contraindication: Treatment Not Indicated VTE Drug Contraindication: N/A - Med Ordered
--- NOTE | 2021-10-26 15:08 | P.CNID_ITS ---
History of Present Illness Data of Consult Service Date: 10/26/21 Requesting physician: Blaire Blackburn Primary Care Provider: Jack Gerber MD [facility] Reason for consult: hypoxia,cough He presents with shortness of breath and cough productive of yellow sputum. He had sputum production,then choking with eating. He had COVID 09/14/2021 reported. He had hypoxia to 80s on presentation. He was started on Zosyn Review of Systems Review of Systems: Yes Unobtainable due to mental condition PMFSH Past Medical History Medical History Depression Hypothyroidism Seizure TBI (traumatic brain injury) Family History Family history: reviewed and not pertinent Surgical History Surgical History H/O thyroidectomy Social History Social History Household Members: Other Housing: Jail Patient Tobacco Use Status: Tobacco use Unknown service: No Current occupational status: disabled Meds Allergies Allergy/AdvReac Type Severity Reaction Status Date / Time No Known Allergies Allergy Unverified 05/18/20 18:53 [No Known Allergies*] Active Medications: Current Medications Acetaminophen (Acetaminophen 325 Mg Tablet) 650 mg PO Q6H PRN PRN Reason: Pain, Mild (Pain Scale 1-3) Last Admin: 10/25/21 00:46 Dose: 650 mg Documented by: Dexamethasone Sodium Phosphate (Dexamethasone Sod Phosphate 4 Mg/Ml Vial) 6 mg IVPUSH DAILY [facility] Last Admin: 10/26/21 09:27 Dose: 6 mg Documented by: Heparin Sodium (Porcine) (Heparin Sodium,Porcine 5,000 Unit/Ml Vial) 5,000 unit SUBCUT Q12H [facility] Last Admin: 10/26/21 05:27 Dose: 5,000 unit Documented by: Piperacillin Sod/Tazobactam (Sod 3.375 gm/ Sodium Chloride) 50 mls @ 100 mls/hr IV Q6H [facility] Last Infusion: 10/26/21 13:17 Dose: Infused Documented by: Levothyroxine Sodium (Levothyroxine Sodium 125 Mcg Tablet) 125 mcg PO DAILY [facility] Last Admin: 10/26/21 09:30 Dose: 125 mcg Documented by: Metoprolol Tartrate (Metoprolol Tartrate 12.5 Mg Halftab) 12.5 mg PO BID [facility]; Protocol Last Admin: 10/26/21 09:30 Dose: 12.5 mg Documented by: Mirtazapine (Mirtazapine 30 Mg Tablet) 30 mg PO BEDTIME [facility] Last Admin: 10/25/21 21:24 Dose: 30 mg Documented by: Omeprazole (Omeprazole 20 Mg/10 Ml Susp.Recon) 20 mg PO DAILY@0630 [facility] Last Admin: 10/26/21 05:40 Dose: 20 mg Documented by: Ondansetron HCl (Ondansetron Hcl 4 Mg/2 Ml Vial) 4 mg IVPUSH Q8H PRN PRN Reason: Nausea and Vomiting Phenytoin (Phenytoin Chewable 50 Mg Tab.Chew) 100 mg PO BID [facility] Last Admin: 10/26/21 09:30 Dose: 100 mg Documented by: Risperidone (Risperidone 1 Mg Tablet) 1 mg PO BID [facility] Last Admin: 10/26/21 09:30 Dose: 1 mg Documented by: Risperidone (Risperidone 0.5 Mg Tablet) 0.5 mg PO BEDTIME [facility] Last Admin: 10/25/21 21:24 Dose: 0.5 mg Documented by: Sertraline HCl (Sertraline Hcl 50 Mg Tablet) 50 mg PO DAILY [facility] Last Admin: 10/26/21 09:30 Dose: 50 mg Documented by: Sodium Chloride (0.9 % Sodium Chloride Flush 3 Ml Syringe) 3 ml IVFLUSH QSHIFT [facility] Last Admin: 10/26/21 09:27 Dose: 3 ml Documented by: Tamsulosin HCl (Tamsulosin Hcl 0.4 Mg Capsule) 0.4 mg PO BEDTIME [facility] Valproic Acid (Valproic Acid (As Sodium Salt) 250 Mg/5 Ml Solution) 500 mg PO BID [facility] Last Admin: 10/26/21 09:27 Dose: 500 mg Documented by: Valproic Acid (Valproic Acid (As Sodium Salt) 250 Mg/5 Ml Solution) 625 mg PO DAILY@1200 [facility] Last Admin: 10/26/21 12:26 Dose: 625 mg Documented by: Home Medications Medication Instructions Recorded Confirmed Last Taken Type acetaminophen 325 mg tablet 650 mg PO BID 10/24/21 10/24/21 10/24/21 History acetaminophen 325 mg tablet 650 mg PO Q4H PRN 10/24/21 10/24/21 10/11/21 History docusate sodium 100 mg capsule 100 mg PO BID 10/24/21 10/24/21 10/24/21 History (Colace) levothyroxine 125 mcg tablet 125 mcg PO DAILY 10/24/21 10/24/21 10/24/21 History magnesium hydroxide 400 mg/5 mL 30 ml PO DAILY PRN 10/24/21 10/24/21 05/14/21 History oral suspension (Milk of Magnesia) mirtazapine 30 mg tablet 30 mg PO BEDTIME 10/24/21 10/24/21 10/23/21 History multivitamin 1 tab PO DAILY 10/24/21 10/24/21 10/24/21 History omeprazole 20 mg tablet,delayed 20 mg PO DAILY 10/24/21 10/24/21 10/24/21 History release risperidone 0.5 mg tablet 0.5 mg PO BEDTIME 10/24/21 10/24/21 10/23/21 History risperidone 1 mg tablet (Risperdal) 1 mg PO BID 10/24/21 10/24/21 10/24/21 History sertraline 50 mg tablet (Zoloft) 50 mg PO DAILY 10/24/21 10/24/21 10/24/21 History Physical Exam Vital Signs: Vital Signs: Last Vital Signs Temp 99.6 F 10/26/21 11:27 Pulse 80 10/26/21 11:27 Resp 18 10/26/21 11:27 BP 120/59 L 10/26/21 11:27 Pulse Ox 99 10/26/21 11:27 BMI result Body Mass Index 22.1 Const: General: cooperative HENMT: Head: Yes normal to inspection Resp: Effort & Inspection: normal respiratory effort Cardio: Rate: regular rate Rhythm: regular rhythm GI: Palpation (GI): Soft to palpation and nontender Skin: General skin exam: no rashes or lesions noted Extrem: General: Yes normal to inspection Results Labs CBC & Chem 7: 10/28/21 08:07 10/28/21 08:07 Labs: Short CBC 10/26/21 Range/Units 06:05 WBC 16.2 H (4.8-10.8) X10*3/uL Hgb 11.6 L (14.0-18.0) g/dl Hct 33.1 L (42.0-52.0) % Plt Count 200 (160-400) X10*3/uL BMP 10/26/21 06:05 Sodium 141 Potassium 3.8 D Chloride 104 Carbon Dioxide 28 BUN 15 Creatinine 0.75 Calcium 8.8 D Microbiology Microbiology Results: Microbiology 10/24/21 17:17 Blood - Venous Blood Culture - Preliminary No growth after 24 hours. 10/24/21 17:17 Blood - Venous Blood Culture - Preliminary No growth after 24 hours. Assessment and Plan (1) COVID-19: Status: Resolved He had COVID in September He doesnt likely have COVID again He may test positive for several months (2) Acute respiratory failure with hypoxia: Status: Resolved (3) Aspiration pneumonia: Status: Acute Aspiration pneumonia can give piperacillin/tazobactam for 5 days. He can stop Zosyn on Friday Aspiration precautions Plan No need to treat COVID at this time. It is finished but still may test PCR positive. Will stop Dexamethasone
[2021-10-26 15:45] VITALS: BP 145/73; PULSE 69; RESP 18; TEMP 37.1; O2SAT 97
[2021-10-26 19:17] VITALS: BP 121/56; PULSE 82; RESP 18; TEMP 37.1; O2SAT 100
[2021-10-26] MEDS: Mirtazapine 30 MG TABLET PO (20:44)
[2021-10-26] MEDS: risperiDONE 0.5 MG TABLET PO (20:45)
[2021-10-27] VITALS (8 sets, daily range): BP systolic 114–180; BP diastolic 53–70; PULSE 16–109; RESP 16–20; TEMP 36.2–38.8; O2SAT 90–99
[2021-10-27] MEDS: Piperacillin Sodium/Tazobactam 3.375 GM in 0.9 % Sodium Chloride 50 ML IV ×5 (00:11→18:31)
[2021-10-27] MEDS: Heparin Sodium,Porcine 5,000 UNIT/ML VIAL 5000 UNIT SUBCUT ×3 (06:18→18:32)
[2021-10-27] MEDS: Levothyroxine Sodium 125 MCG TABLET PO (08:31)
[2021-10-27] MEDS: Sertraline HCL 50 MG TABLET PO (08:31)
[2021-10-27] MEDS: Metoprolol Tartrate 12.5 MG HALFTAB PO ×2 (08:31→22:00)
[2021-10-27] MEDS: risperiDONE 1 MG TABLET PO ×2 (08:31→22:01)
[2021-10-27] MEDS: Phenytoin Chewable 50 MG TAB.CHEW 100 MG PO ×2 (08:31→22:01)
[2021-10-27] MEDS: 0.9 % Sodium Chloride Flush 3 ML SYRINGE IVFLUSH ×2 (08:32→17:14)
--- NOTE | 2021-10-27 12:28 | P.PNIM_ITS ---
Subjective Subjective Date of Service: 10/27/21 <ROMERO Reeves - Last Filed: 10/27/21 12:36> 10/27/21 <Raymond Hartman DO - Last Filed: 10/27/21 18:36> Interval History: seen and examined this morning reports feeling like something is stuck in throat but denies difficulty swa llowing no shortness of breath, no chest pain or abdomina pain <ROMERO Reeves - Last Filed: 10/27/21 12:36> Review of Systems Review of Systems: Yes all other systems are reviewed and are negative <ROMERO Reeves - Last Filed: 10/27/21 12:36> Constitutional Constitutional: Denies chills and Denies fever(s) <ROMERO Reeves - Last Filed: 10/27/21 12:36> Cardiovascular Cardiovascular: Denies chest pain, Denies palpitations and Denies dyspnea <ROMERO Reeves - Last Filed: 10/27/21 12:36> Respiratory Respiratory: Reports cough and Denies dyspnea <ROMERO Reeves - Last Filed: 10/27/21 12:36> Gastrointestinal Gastrointestinal: Denies nausea and Denies vomiting <ROMERO Reeves - Last Filed: 10/27/21 12:36> Endocrine Endocrine: Denies palpitations <ROMERO Reeves - Last Filed: 10/27/21 12:36> Physical Exam Vital Signs: Vital Signs: Last Vital Signs Temp 99.6 F 10/27/21 11:42 Pulse 88 10/27/21 11:42 Resp 20 10/27/21 11:42 BP 131/61 10/27/21 11:42 Pulse Ox 92 10/27/21 11:42 BMI result Body Mass Index 22.1 <ROMERO Reeves - Last Filed: 10/27/21 12:36> Const: Other: sleeping on entering, but easily arousable to verbal stimuli <ROMERO Reeves Last Filed: 10/27/21 12:36> General: cooperative, comfortable, no acute distress, alert and awake <ROMERO Reeves - Last Filed: 10/27/21 12:36> Nutritional Appearance: thin <ROMERO Reeves - Last Filed: 10/27/21 12:36> Resp: Effort & Inspection: normal respiratory effort and no respiratory distress <ROMERO Reeves - Last Filed: 10/27/21 12:36> GI: Inspection: No distended <ROMERO Reeves - Last Filed: 10/27/21 12:36> Palpation (GI): Soft to palpation and nontender <ROMERO Reeves - Last Filed: 10/27/21 12:36> : Other: melton present <ROMERO Reeves - Last Filed: 10/27/21 12:36> Objective Data Active Medications Acetaminophen (Acetaminophen 325 Mg Tablet) 650 mg PO Q6H PRN PRN Reason: Pain, Mild (Pain Scale 1-3) Last Admin: 10/25/21 00:46 Dose: 650 mg Documented by: WAYLON Heparin Sodium (Porcine) (Heparin Sodium,Porcine 5,000 Unit/Ml Vial) 5,000 unit SUBCUT Q12H [facility] Last Admin: 10/27/21 06:18 Dose: 5,000 unit Documented by: JOY Piperacillin Sod/Tazobactam (Sod 3.375 gm/ Sodium Chloride) 50 mls @ 100 mls/hr IV Q6H [facility] Last Admin: 10/27/21 12:15 Dose: 100 mls/hr Documented by: ANA Levothyroxine Sodium (Levothyroxine Sodium 125 Mcg Tablet) 125 mcg PO DAILY [facility] Last Admin: 10/27/21 08:31 Dose: 125 mcg Documented by: ANA Metoprolol Tartrate (Metoprolol Tartrate 12.5 Mg Halftab) 12.5 mg PO BID [facility]; Protocol Last Admin: 10/27/21 08:31 Dose: 12.5 mg Documented by: ANA Mirtazapine (Mirtazapine 30 Mg Tablet) 30 mg PO BEDTIME [facility] Last Admin: 10/26/21 20:44 Dose: 30 mg Documented by: JOY Omeprazole (Omeprazole 20 Mg/10 Ml Susp.Recon) 20 mg PO DAILY@0630 [facility] Last Admin: 10/27/21 06:18 Dose: 20 mg Documented by: JOY Ondansetron HCl (Ondansetron Hcl 4 Mg/2 Ml Vial) 4 mg IVPUSH Q8H PRN PRN Reason: Nausea and Vomiting Phenytoin (Phenytoin Chewable 50 Mg Tab.Chew) 100 mg PO BID [facility] Last Admin: 10/27/21 08:31 Dose: 100 mg Documented by: ANA Risperidone (Risperidone 1 Mg Tablet) 1 mg PO BID [facility] Last Admin: 10/27/21 08:31 Dose: 1 mg Documented by: ANA Risperidone (Risperidone 0.5 Mg Tablet) 0.5 mg PO BEDTIME [facility] Last Admin: 10/26/21 20:45 Dose: 0.5 mg Documented by: JOY Sertraline HCl (Sertraline Hcl 50 Mg Tablet) 50 mg PO DAILY [facility] Last Admin: 10/27/21 08:31 Dose: 50 mg Documented by: ANA Sodium Chloride (0.9 % Sodium Chloride Flush 3 Ml Syringe) 3 ml IVFLUSH QSHIFT [facility] Last Admin: 10/27/21 08:32 Dose: 3 ml Documented by: ANA Tamsulosin HCl (Tamsulosin Hcl 0.4 Mg Capsule) 0.4 mg PO BEDTIME [facility] Valproic Acid (Valproic Acid (As Sodium Salt) 250 Mg/5 Ml Solution) 500 mg PO BID [facility] Last Admin: 10/27/21 08:31 Dose: 500 mg Documented by: ANA Valproic Acid (Valproic Acid (As Sodium Salt) 250 Mg/5 Ml Solution) 625 mg PO DAILY@1200 [facility] Last Admin: 10/27/21 12:16 Dose: 625 mg Documented by: ANA <ROMERO Reeves - Last Filed: 10/27/21 12:36> Labs CBC & Chem 7: : 10/26/21 06:05 10/26/21 06:05 <ROMERO Reeves - Last Filed: 10/27/21 12:36> Microbiology Microbiology Results: Microbiology 10/24/21 17:17 Blood Culture - Preliminary Blood - Venous No growth after 48 hours. 10/24/21 17:17 Blood Culture - Preliminary Blood - Venous No growth after 48 hours. <ROMERO Reeves - Last Filed: 02/26/22 12:36> Assessment and Plan (1) Aspiration pneumonia: Status: Acute <ROMERO Reeves - Last Filed: 10/27/21 12:36> (2) Acute respiratory failure with hypoxia: Status: Acute <ROMERO Reeves - Last Filed: 10/27/21 12:36> Plan 71 year old man admitted after an episode of choking and maikol has aspiration pneumonia Acute hypoxic respiratory failure secondary to aspiration pneumonia likely related to choking episode/oropharyngeal dysphagia continue IV zosyn for total 5 days blood cultures negative to date seen by speech - rec Pureed diet with thin liqs and pills crushed in puree; see full speech eval for details aspiration precautions oxygen requirements decreasing, continue to wean o2 reports globus sensation today, consider MBS if no improvement Covid 19 Diagnosed 09/14/21, still testing positive initially started on IV decadron, seen by ID, not likely active covid, decadron d/c leukocytosis r/t steroids ?HTN continue lopressor Hypothyroidism Continue levothyroxine Seizure disorder continue dilantin, depakote seizure precautions medications changed to crushable/liquid formulations for now-repeat levels Friday due to change in formulation GERD continue omeprazole Mood continue sertraline, risperidone, remeron BPH continue flomax DVT prophylaxis with heparin Attending Dr. Hartman DNR/DNI Dispo: to return to [facility] when medically ready, likely tomorrow <ROMERO Reeves - Last Filed: 10/27/21 12:36> 71 year old man admitted after an episode of choking and maikol has aspiration pneumonia Acute hypoxic respiratory failure secondary to aspiration pneumonia likely related to choking episode/oropharyngeal dysphagia continue IV zosyn for total 5 days blood cultures negative to date seen by speech - rec Pureed diet with thin liqs and pills crushed in puree; see full speech eval for details aspiration precautions oxygen requirements decreasing, continue to wean o2 reports globus sensation today, consider MBS if no improvement Covid 19 Diagnosed 09/14/21, still testing positive initially started on IV decadron, seen by ID, not likely active covid, decadron d/c leukocytosis r/t steroids ?HTN continue lopressor Hypothyroidism Continue levothyroxine Seizure disorder continue dilantin, depakote seizure precautions medications changed to crushable/liquid formulations for now-repeat levels Friday due to change in formulation GERD continue omeprazole Mood continue sertraline, risperidone, remeron BPH continue flomax DVT prophylaxis with heparin Attending Dr. Hartman DNR/DNI Dispo: to return to [facility] when medically ready, likely tomorrow Chart reviewed. Pt examined. Agree with H+P/assesment and plan as outlined by Ms Bere JASSO <Raymond Hartman, DO - Last Filed: 10/27/21 18:36> Quality Stroke Does the patient have a stroke diagnosis?: No <ROMERO Reeves - Last Filed: 10/27/21 12:36> VTE Prior VTE?: No <ROMERO Reeves - Last Filed: 10/27/21 12:36> VTE Risk Level:: Medical - moderate - high <ROMERO Reeves - Last Filed: 10/27/21 12:36> VTE Device Contraindication: Treatment Not Indicated <ROMERO Reeves - Last Filed: 10/27/21 12:36> VTE Drug Contraindication: N/A - Med Ordered <ROMERO Reeves - Last Filed: 10/27/21 12:36>
[2021-10-27] MEDS: Acetaminophen 325 MG TABLET 650 MG PO (17:14)
[2021-10-27] MEDS: risperiDONE 0.5 MG TABLET PO (22:01)
[2021-10-27] MEDS: Mirtazapine 30 MG TABLET PO (22:01)
[2021-10-28] MEDS: 0.9 % Sodium Chloride Flush 3 ML SYRINGE IVFLUSH ×3 (02:18→16:22)
[2021-10-28 04:00] VITALS: BP 142/62; PULSE 110; RESP 20; TEMP 36.9; O2SAT 92
[2021-10-28] MEDS: Piperacillin Sodium/Tazobactam 3.375 GM in 0.9 % Sodium Chloride 50 ML IV ×3 (06:26→19:04)
[2021-10-28] MEDS: Heparin Sodium,Porcine 5,000 UNIT/ML VIAL 5000 UNIT SUBCUT ×2 (06:48→19:04)
[2021-10-28 07:32] VITALS: BP 143/54; PULSE 96; RESP 20; TEMP 37.4; O2SAT 97
[2021-10-28] MEDS: Sertraline HCL 50 MG TABLET PO (08:09)
[2021-10-28] MEDS: Levothyroxine Sodium 125 MCG TABLET PO (08:09)
[2021-10-28] MEDS: Metoprolol Tartrate 12.5 MG HALFTAB PO ×2 (08:09→22:08)
[2021-10-28] MEDS: risperiDONE 1 MG TABLET PO ×2 (08:09→22:08)
[2021-10-28] MEDS: Phenytoin Chewable 50 MG TAB.CHEW 100 MG PO ×2 (08:09→22:08)
[2021-10-28 08:24] LABS: Basophils Percent Auto 0.2 % (0-2); Eosinophils Absolute Auto 0.2 X10*3/uL (0.0-0.4); Eosinophils Percent Auto 3.1 % (0-4); Hematocrit 29.6 % (42.0-52.0); Hemoglobin 10.5 g/dl (14.0-18.0); Imm Gran Abs Auto 0.06 X10*3/uL (0.00-0.03); Imm Gran Pct Auto 0.9 % (0.0-0.4); Lymphocytes Absolute Auto 0.7 X10*3/uL (1.2-4.9); Lymphocytes Percent Auto 11.3 % (20-40); MANUAL DIFF FLAG SCAN; Mean Corpuscular HGB Conc 35.5 g/dl (31.0-36.0); Mean Corpuscular Hemoglobin 36.8 pg (27.0-33.0); Mean Corpuscular Volume 103.9 fL (80.0-98.0); Mean Platelet Volume 10.4 fL (9.4-12.4); Monocytes Absolute Auto 0.2 X10*3/uL (0.1-1.2); Monocytes Percent Auto 2.3 % (2-11); Neutrophils Absolute Auto 5.4 x10*3/uL (2.0-8.3); Neutrophils Percent Auto 82.2 % (45-73); Platelet Count 211 X10*3/uL (160-400); Red Blood Count 2.85 X10*6/uL (4.60-5.80); Red Cell Distribution Width 14.8 % (11.0-16.0); SCAN SMEAR FLAG 1; White Blood Count 6.5 X10*3/uL (4.8-10.8)
[2021-10-28 08:46] LABS: Anion Gap 11 (12-20); Blood Urea Nitrogen 10 mg/dL (9-16); Calcium 8.3 mg/dL (8.4-10.2); Carbon Dioxide 30 mmol/L (22-29); Chloride 105 mmol/L (96-108); Creatinine Clr Calc Pharmacy 92.9; Estimated Glomerular Filt Rate > 60; Glucose Random 135 mg/dL (60-115); Potassium 3.5 mmol/L (3.3-5.1); Sodium 142 mmol/L (135-145)
[2021-10-28 09:02] LABS: SLIDE REVIEW VERIFIED
--- NOTE | 2021-10-28 09:58 | HO.PM.IMPN ---
Subjective Subjective Date of Service: 10/28/21 <ROMERO Reeves - Last Filed: 10/28/21 10:13> 11/11/21 <Raymond Hartman DO - Last Filed: 11/11/21 15:42> Interval History: seen and examined this morning throat feeling better today, no longer feels like something is stuck fever overnight mild cough, no shortness of breath <ROMERO Reeves - Last Filed: 10/28/21 10:13> Constitutional Constitutional: Denies chills and Denies fever(s) <ROMERO Reeves - Last Filed: 10/28/21 10:13> Cardiovascular Cardiovascular: Denies dyspnea <ROMERO Reeves - Last Filed: 10/28/21 10:13> Respiratory Respiratory: Reports cough and Denies dyspnea <ROMERO Reeves - Last Filed: 10/28/21 10:13> Gastrointestinal Gastrointestinal: Denies abdominal pain, Denies diarrhea, Denies nausea and Denies vomiting <ROMERO Reeves - Last Filed: 10/28/21 10:13> Genitourinary Genitourinary: Denies dysuria <ROMERO Reeves - Last Filed: 10/28/21 10:13> Physical Exam Vital Signs: Vital Signs: Last Vital Signs Temp 99.4 F 10/28/21 07:32 Pulse 96 10/28/21 07:32 Resp 20 10/28/21 07:32 BP 143/54 H 10/28/21 07:32 Pulse Ox 97 10/28/21 07:32 BMI result Body Mass Index 22.1 <ROMERO Reeves - Last Filed: 10/28/21 10:13> Const: General: cooperative, comfortable, no acute distress, alert and awake <ROMERO Reeves - Last Filed: 10/28/21 10:13> Nutritional Appearance: thin <ROMERO Reeves - Last Filed: 10/28/21 10:13> Resp: Effort & Inspection: normal respiratory effort and no respiratory distress <ROMERO Reeves - Last Filed: 10/28/21 10:13> Auscultation: diminished lung sounds <ROMERO Reeves - Last Filed: 10/28/21 10:13> GI: Inspection: No distended <ROMERO Reeves - Last Filed: 10/28/21 10:13> Palpation (GI): Soft to palpation and nontender <ROMERO Reeves - Last Filed: 10/28/21 10:13> : Other: melton present <ROMERO Reeves - Last Filed: 10/28/21 10:13> Extrem: Other: no leg edema <ROMERO Reeves - Last Filed: 10/28/21 10:13> Objective Data Active Medications Acetaminophen (Acetaminophen 325 Mg Tablet) 650 mg PO Q6H PRN PRN Reason: Pain, Mild (Pain Scale 1-3) Last Admin: 10/27/21 17:14 Dose: 650 mg Documented by: WAYLON Heparin Sodium (Porcine) (Heparin Sodium,Porcine 5,000 Unit/Ml Vial) 5,000 unit SUBCUT Q12H [facility] Last Admin: 10/28/21 06:48 Dose: 5,000 unit Documented by: ROCHELLE Piperacillin Sod/Tazobactam (Sod 3.375 gm/ Sodium Chloride) 50 mls @ 100 mls/hr IV Q6H [facility] Last Infusion: 10/28/21 07:23 Dose: 0 mls/hr Documented by: AMELIA Levothyroxine Sodium (Levothyroxine Sodium 125 Mcg Tablet) 125 mcg PO DAILY [facility] Last Admin: 10/28/21 08:09 Dose: 125 mcg Documented by: AMELIA Metoprolol Tartrate (Metoprolol Tartrate 12.5 Mg Halftab) 12.5 mg PO BID [facility]; Protocol Last Admin: 10/28/21 08:09 Dose: 12.5 mg Documented by: AMELIA Mirtazapine (Mirtazapine 30 Mg Tablet) 30 mg PO BEDTIME [facility] Last Admin: 10/27/21 22:01 Dose: 30 mg Documented by: WAYLON Omeprazole (Omeprazole 20 Mg/10 Ml Susp.Recon) 20 mg PO DAILY@0630 [facility] Last Admin: 10/28/21 06:27 Dose: 20 mg Documented by: ROCHELLE Ondansetron HCl (Ondansetron Hcl 4 Mg/2 Ml Vial) 4 mg IVPUSH Q8H PRN PRN Reason: Nausea and Vomiting Phenytoin (Phenytoin Chewable 50 Mg Tab.Chew) 100 mg PO BID [facility] Last Admin: 10/28/21 08:09 Dose: 100 mg Documented by: AMELIA Risperidone (Risperidone 1 Mg Tablet) 1 mg PO BID [facility] Last Admin: 10/28/21 08:09 Dose: 1 mg Documented by: AMELIA Risperidone (Risperidone 0.5 Mg Tablet) 0.5 mg PO BEDTIME [facility] Last Admin: 10/27/21 22:01 Dose: 0.5 mg Documented by: WAYLON Sertraline HCl (Sertraline Hcl 50 Mg Tablet) 50 mg PO DAILY [facility] Last Admin: 10/28/21 08:09 Dose: 50 mg Documented by: AMELIA Sodium Chloride (0.9 % Sodium Chloride Flush 3 Ml Syringe) 3 ml IVFLUSH QSHIFT [facility] Last Admin: 10/28/21 08:10 Dose: 3 ml Documented by: AMELIA Tamsulosin HCl (Tamsulosin Hcl 0.4 Mg Capsule) 0.4 mg PO BEDTIME [facility] Valproic Acid (Valproic Acid (As Sodium Salt) 250 Mg/5 Ml Solution) 500 mg PO BID [facility] Last Admin: 10/28/21 08:09 Dose: 500 mg Documented by: AMELIA Valproic Acid (Valproic Acid (As Sodium Salt) 250 Mg/5 Ml Solution) 625 mg PO DAILY@1200 [facility] Last Admin: 10/27/21 12:16 Dose: 625 mg Documented by: ANA <ROMERO Reeves - Last Filed: 10/28/21 10:13> Labs CBC & Chem 7: : 10/28/21 08:07 10/28/21 08:07 <ROMERO Reeves - Last Filed: 10/28/21 10:13> Labs: Laboratory Results - last 24 hr 10/28/21 10/28/21 08:07 08:07 MCV 103.9 H MCH 36.8 H MCHC 35.5 RDW 14.8 Plt Count 211 MPV 10.4 Immature Gran % (Auto) 0.9 H Neut % (Auto) 82.2 H Lymph % (Auto) 11.3 L Forrest % (Auto) 2.3 Eos % (Auto) 3.1 Baso % (Auto) 0.2 Lymph # (Auto) 0.7 L Forrest # (Auto) 0.2 Eos # (Auto) 0.2 Baso # (Auto) 0.0 Abs Immat Gran (auto) 0.06 H Absolute Neuts (auto) 5.4 Absolute Nucleated RBC 0.000 Nucleated RBC % (auto) 0.0 Smear Tech's Comments VERIFIED Anion Gap 11 L Estim Creat Clear Calc 92.9 Estimated GFR > 60 Random Glucose 135 H Calcium 8.3 L <ROMERO Reeves - Last Filed: 10/28/21 10:13> Assessment and Plan (1) Aspiration pneumonia: Status: Acute <ROMERO Reeves - Last Filed: 10/28/21 10:13> (2) Acute respiratory failure with hypoxia: Status: Resolved <ROMERO Reeves - Last Filed: 10/28/21 10:13> Plan 71 year old man admitted after an episode of choking and likley has aspiration pneumonia Acute hypoxic respiratory failure secondary to aspiration pneumonia. fever overnight. likely related to choking episode/oropharyngeal dysphagia continue IV zosyn for 5 days per ID rec repeat cxr 10/28 showing multiple patchy opacities will add doxy for atypical coverage blood cultures negative to date seen by speech - rec Pureed diet with thin liqs and pills crushed in puree; see full speech eval for details aspiration precautions oxygen requirements decreasing, continue to wean o2 Covid 19 Diagnosed 09/14/21, still testing positive initially started on IV decadron, seen by ID, not likely active covid, decadron d/c leukocytosis r/t steroids ?HTN continue lopressor Hypothyroidism Continue levothyroxine Seizure disorder continue dilantin, depakote seizure precautions medications changed to crushable/liquid formulations for now- pharmacy rec repeat levels Friday due to change in formulation GERD continue omeprazole Mood continue sertraline, risperidone, remeron BPH continue flomax DVT prophylaxis with heparin Attending Dr. Hartman DNR/DNI Dispo: to return to [facility] when medically ready <ROMERO Reeves - Last Filed: 10/28/21 10:13> 71 year old man admitted after an episode of choking and likley has aspiration pneumonia Acute hypoxic respiratory failure secondary to aspiration pneumonia. fever overnight. likely related to choking episode/oropharyngeal dysphagia continue IV zosyn for 5 days per ID rec repeat cxr 10/28 showing multiple patchy opacities will add doxy for atypical coverage blood cultures negative to date seen by speech - rec Pureed diet with thin liqs and pills crushed in puree; see full speech eval for details aspiration precautions oxygen requirements decreasing, continue to wean o2 Covid 19 Diagnosed 09/14/21, still testing positive initially started on IV decadron, seen by ID, not likely active covid, decadron d/c leukocytosis r/t steroids ?HTN continue lopressor Hypothyroidism Continue levothyroxine Seizure disorder continue dilantin, depakote seizure precautions medications changed to crushable/liquid formulations for now- pharmacy rec repeat levels Friday due to change in formulation GERD continue omeprazole Mood continue sertraline, risperidone, remeron BPH continue flomax DVT prophylaxis with heparin Attending Dr. Hartman DNR/DNI Dispo: to return to [facility] when medically ready Patient examined chart reviewed. Agree with history and physical as well as assessment and plan as outlined by Ms. Blackburn <Raymond Hartman, - Last Filed: 11/11/21 15:42> Quality Stroke Does the patient have a stroke diagnosis?: No <ROMERO Reeves - Last Filed: 10/28/21 10:13> VTE Prior VTE?: No <ROMERO Reeves - Last Filed: 10/28/21 10:13> VTE Risk Level:: Medical - moderate - high <ROMERO Reeves - Last Filed: 10/28/21 10:13> VTE Device Contraindication: Treatment Not Indicated <ROMERO Reeves - Last Filed: 10/28/21 10:13> VTE Drug Contraindication: N/A - Med Ordered <ROMERO Reeves - Last Filed: 10/28/21 10:13>
[2021-10-28] MEDS: Doxycycline Hyclate 100 MG in 0.9 % Sodium Chloride 250 ML 166.67 MG IV ×2 (11:00→22:08)
[2021-10-28 11:32] VITALS: BP 116/56; PULSE 86; RESP 20; TEMP 37.4; O2SAT 96
[2021-10-28 12:18] LABS: Appearance Urine HAZY; Color Urine YELLOW; Glucose Urine UA NEG (NEG); Leukocyte Esterase Urine NEG (NEG); Nitrite Urine NEG (NEG); PH 5.5 (5.0-8.0); Specific Gravity - Urine 1.025 (1.005-1.025); UACC Culture Trigger NO; Urine Blood TRACE (NEG); Urine Ketones NEG (NEG); Urine Protein 1+ MG/DL (NEG-TRACE)
[2021-10-28 12:27] LABS: Bacteria Urine 2+ /LPF; Mucus Urine 1+ /LPF; Squamous Epithelial Cell Urine TRACE /LPF
[2021-10-28 15:14] VITALS: BP 121/58; PULSE 86; RESP 20; TEMP 36.1; O2SAT 95
--- NOTE | 2021-10-28 15:24 | PC.NURSE ---
Patient straight cathed for u/a. 900cc drained concentrated yellow urine.
[2021-10-28 19:16] VITALS: BP 112/63; PULSE 99; RESP 20; TEMP 36.9; O2SAT 95
[2021-10-28] MEDS: risperiDONE 0.5 MG TABLET PO (22:08)
[2021-10-28] MEDS: Mirtazapine 30 MG TABLET PO (22:08)
[2021-10-28 23:18] VITALS: BP 133/62; PULSE 94; RESP 20; TEMP 36.7; O2SAT 96
[2021-10-29] MEDS: Piperacillin Sodium/Tazobactam 3.375 GM in 0.9 % Sodium Chloride 50 ML IV ×2 (01:22→06:18)
[2021-10-29] MEDS: 0.9 % Sodium Chloride Flush 3 ML SYRINGE IVFLUSH ×2 (01:22→09:21)
[2021-10-29 04:00] VITALS: BP 115/59; PULSE 90; RESP 20; TEMP 36.8; O2SAT 96
[2021-10-29] MEDS: Heparin Sodium,Porcine 5,000 UNIT/ML VIAL 5000 UNIT SUBCUT (06:17)
[2021-10-29 07:34] LABS: Valproate 40.5 mcg/mL (50.0-100.0)
[2021-10-29 07:50] VITALS: BP 129/62; PULSE 93; RESP 18; TEMP 36.9; O2SAT 97
[2021-10-29] MEDS: Levothyroxine Sodium 125 MCG TABLET PO (09:21)
[2021-10-29] MEDS: Metoprolol Tartrate 12.5 MG HALFTAB PO (09:22)
[2021-10-29] MEDS: Phenytoin Chewable 50 MG TAB.CHEW 100 MG PO (09:22)
[2021-10-29] MEDS: risperiDONE 1 MG TABLET PO (09:23)
[2021-10-29] MEDS: Sertraline HCL 50 MG TABLET PO (09:23)
--- NOTE | 2021-10-29 10:29 | P.PNIM_ITS ---
Subjective Subjective Date of Service: 10/29/21 Review of Systems Follow up in bed requesting something to drink no complaints of pain Physical Exam Vital Signs: Vital Signs: Last Vital Signs Temp 98.4 F 10/29/21 07:50 Pulse 93 10/29/21 07:50 Resp 18 10/29/21 07:50 BP 129/62 10/29/21 07:50 Pulse Ox 97 10/29/21 07:50 BMI result Body Mass Index 22.1 Appearing in no acute distress lung sounds diminished heart regular rate rhythm, clear S1, S2 positive bowel sounds, abdomen is soft, nontender neuro patient is alert, chronically confused Objective Data Active Medications Acetaminophen (Acetaminophen 325 Mg Tablet) 650 mg PO Q6H PRN PRN Reason: Pain, Mild (Pain Scale 1-3) Last Admin: 10/27/21 17:14 Dose: 650 mg Documented by: WAYLON Heparin Sodium (Porcine) (Heparin Sodium,Porcine 5,000 Unit/Ml Vial) 5,000 unit SUBCUT Q12H [facility] Last Admin: 10/29/21 06:17 Dose: 5,000 unit Documented by: LEONIE Doxycycline Hyclate 100 mg/ (Sodium Chloride) 250 mls @ 166.67 mls/hr IV Q12H [facility] Last Infusion: 10/29/21 00:18 Dose: 0 mls/hr Documented by: WAYLON Levothyroxine Sodium (Levothyroxine Sodium 125 Mcg Tablet) 125 mcg PO DAILY [facility] Last Admin: 10/29/21 09:21 Dose: 125 mcg Documented by: MERYL Metoprolol Tartrate (Metoprolol Tartrate 12.5 Mg Halftab) 12.5 mg PO BID [facility]; Protocol Last Admin: 10/29/21 09:22 Dose: 12.5 mg Documented by: MERYL Mirtazapine (Mirtazapine 30 Mg Tablet) 30 mg PO BEDTIME [facility] Last Admin: 10/28/21 22:08 Dose: 30 mg Documented by: WAYLON Omeprazole (Omeprazole 20 Mg/10 Ml Susp.Recon) 20 mg PO DAILY@0630 [facility] Last Admin: 10/29/21 06:18 Dose: 20 mg Documented by: LEONIE Ondansetron HCl (Ondansetron Hcl 4 Mg/2 Ml Vial) 4 mg IVPUSH Q8H PRN PRN Reason: Nausea and Vomiting Phenytoin (Phenytoin Chewable 50 Mg Tab.Chew) 100 mg PO BID [facility] Last Admin: 10/29/21 09:22 Dose: 100 mg Documented by: MERYL Risperidone (Risperidone 1 Mg Tablet) 1 mg PO BID [facility] Last Admin: 10/29/21 09:23 Dose: 1 mg Documented by: MERYL Risperidone (Risperidone 0.5 Mg Tablet) 0.5 mg PO BEDTIME [facility] Last Admin: 10/28/21 22:08 Dose: 0.5 mg Documented by: WAYLON Sertraline HCl (Sertraline Hcl 50 Mg Tablet) 50 mg PO DAILY [facility] Last Admin: 10/29/21 09:23 Dose: 50 mg Documented by: MERYL Sodium Chloride (0.9 % Sodium Chloride Flush 3 Ml Syringe) 3 ml IVFLUSH QSHIFT [facility] Last Admin: 10/29/21 09:21 Dose: 3 ml Documented by: MERYL Tamsulosin HCl (Tamsulosin Hcl 0.4 Mg Capsule) 0.4 mg PO BEDTIME [facility] Valproic Acid (Valproic Acid (As Sodium Salt) 250 Mg/5 Ml Solution) 500 mg PO BID [facility] Last Admin: 10/29/21 09:23 Dose: 500 mg Documented by: MERYL Valproic Acid (Valproic Acid (As Sodium Salt) 250 Mg/5 Ml Solution) 625 mg PO DAILY@1200 [facility] Last Admin: 10/28/21 13:17 Dose: Not Given Documented by: AMELIA Non-Admin Reason: LETHARGIC Labs CBC & Chem 7: 10/28/21 08:07 10/28/21 08:07 Labs: Laboratory Results - last 24 hr 10/28/21 10/29/21 11:55 06:41 Urine Color YELLOW Urine Appearance HAZY Urine pH 5.5 Ur Specific [place] 1.025 Urine Protein 1+ H Urine Glucose (UA) NEG Urine Ketones NEG Urine Blood TRACE Urine Nitrite NEG Ur Leukocyte Esterase NEG Urine RBC 10-14 H Urine WBC 1-4 Ur Squamous Epith Cells TRACE Urine Bacteria 2+ Urine Mucus 1+ Phenytoin 6.0 L* Valproic Acid 40.5 L Assessment and Plan (1) Aspiration pneumonia: Status: Acute (2) Acute respiratory failure with hypoxia: Status: Acute Plan 71 year old man admitted after an episode of choking and likley has aspiration pneumonia Acute hypoxic respiratory failure secondary to aspiration pneumonia. likely related to choking episode/oropharyngeal dysphagia 5 days IV zosyn complete, now on doxycycline repeat cxr 10/28 showing multiple patchy opacities blood cultures negative to date continue to wean o2 Tachycardia, not afib Increase metoprolol to 25mg BID Chronic/resolved Covid 19 Diagnosed 09/14/21, still testing positive initially started on IV decadron, seen by ID, not likely active covid, decadron d/c leukocytosis. Resolved r/t steroid Hypothyroidism Continue levothyroxine Seizure disorder continue dilantin, depakote seizure precautions medications changed to crushable/liquid formulations for now- pharmacy rec repeat levels Friday due to change in formulation GERD continue omeprazole Mood continue sertraline, risperidone, remeron BPH continue flomax DVT prophylaxis with heparin Attending Dr. Sheppard DNR/DNI Dispo: to return to [facility] when medically ready Quality Stroke Does the patient have a stroke diagnosis?: No VTE Prior VTE?: No VTE Risk Level:: Medical - moderate - high VTE Device Contraindication: Treatment Not Indicated VTE Drug Contraindication: N/A - Med Ordered
--- NOTE | 2021-10-29 11:15 | MHC.SL.SWA ---
Risk of Aspiration Due to: Neurological Condition History of Pneumonia Reduced Cognition Dysphasia Diet Status: Patient is a 71 year old male who comes from [facility]. Patient had choked on kielbasa and milkshake, vomited thick mucus phlegm. He was found to be COVID positive. Patient was admitted for aspiration pneumonia, COVID19, acute respiratory failure with hypoxia. Moderate oropharyngeal dysphagia characterized by delayed AP transport, delayed pharyngeal swallow trigger, pocketing. Recommend continue PUREED (NDD1) solids and THIN liquids, pills CRUSHED in PUREE. Patient must be awake and alert for meals. Minimize distractions. May need to hold tray if patient is lethargic. Administer small bites, check oral cavity, and wash residue with sips of liquid as needed. Recommend 1:1 assistance, aspiration precautions, and close monitoring for any s/s of aspiration. IT MANAGER will continue to follow. Liquid Consistency and Strategies for Safe Swallow: Liquid Intake Recommendation: Thin Liquid Intake Strategies: Small Sips No Straws Solid Food Consistency: Dietary Recommendations: Pureed (NDD1) Oral Medication Intake: Crushed with Puree Please contact the pharmacy regarding appropriate crushable or liquid drug formulations that are available whenever modified delivery is recommended. Compensatory Strategies and Precautions to be Taken for Safe Swallow: Sitting Upright (90 deg) No Straw Small Bites and Sips Alternate Liquids/Solids Rate of Ingestion Change Oral Check Supervision While Eating and Drinking for Safe Swallow: Total Assistance (1:1) Swallowing Recommended Treatments: Compens. Strategy Educat. Recommendation for Speech: Inpatient Speech Therapy Manager Privacy Clinican/Clinical Fellow: No Supervisory Statement: I have reviewed and agree with the student/clinical fellow's documentation: N/A Speech Language Pathologist: Malgorzata Chiang M.A., [facility]-IT MANAGER
[2021-10-29 11:30] VITALS: BP 128/61; PULSE 93; RESP 18; TEMP 36.7; O2SAT 98
[2021-10-29] MEDS: Doxycycline Hyclate 100 MG in 0.9 % Sodium Chloride 250 ML 166.67 MG IV (11:45)
--- NOTE | 2021-10-29 13:58 | P.DS_ITS ---
DS: Providers Provider Date of Service: 10/29/21 Date of admission: 10/24/21 16:38 Primary care physician: Jack Gerber MD Consults: 10/25/21 08:34 Consult to Infectious Diseases Routine Consulting Provider: Steffi Bolden Reason for consultation: ?covid/aspiration Has provider been notified: No DS: Diagnosis Discharge Diagnosis (1) Aspiration pneumonia: Status: Acute (2) Acute respiratory failure with hypoxia: Status: Acute DS: Summary Hospital Course Hospital Course: Acute hypoxic respiratory failure secondary to aspiration pneumonia, likely r elated to choking episode/oropharyngeal dysphagia, 5 days IV zosyn complete, now on doxycycline, blood cultures negative to date Tachycardia, not afib, Increase metoprolol to 25mg BID Covid 19. Diagnosed 09/14/21, still testing positive, initially started on IV decadron, seen by ID, not likely active covid, decadron d/c. Seizure disorder. No seizures while inpatient. valproic acid dose increased to 625 mg daily at 12:00 due to low levels. Continue Dilantin and other dose of valproic acid 500 mg twice daily urinary retension. Dhaliwal catheter placed, Flomax increased. Follow up with urology in office Time Spent with Patient Time attestation: Total time spent providing and/or coordinating discharge services: Discharge coordination time: Greater than 30 minutes Quality: Stroke Does the patient have a stroke diagnosis?: No Physical Exam Vital Signs: Vital Signs: Last Vital Signs Temp 98.1 F 10/29/21 11:30 Pulse 93 10/29/21 11:30 Resp 18 10/29/21 11:30 BP 128/61 10/29/21 11:30 Pulse Ox 98 10/29/21 11:30 BMI result Body Mass Index 22.1 Appearing in no acute distress lung sounds are clear to auscultation heart regular rate rhythm, clear S1, S2 positive bowel sounds, abdomen is soft, nontender neuro patient is alert x3, chronically confused DS: Data Data Completed and Pending Labs on day of discharge: Laboratory Results - last 24 hr 10/29/21 06:41 Phenytoin 6.0 L* Valproic Acid 40.5 L Preliminary micro results at discharge 10/24/21 17:17 Blood Culture - Preliminary Blood - Venous No growth after 48 hours. 10/24/21 17:17 Blood Culture - Preliminary Blood - Venous No growth after 48 hours. Discharge Plan Discharge Anticipated Discharge Date/Time: 10/29/21 13:04 Patient Disposition: Xfer LT Discharge Diagnosis: Aspiration pneumonia Referrals: [facility] [Outside] - 1 Week Jack Gerber MD [Primary Care Provider] - 1 Week Discharge Medications: New metoprolol tartrate 25 mg Tablet 25 mg PO BID Qty: 60 0RF Protocol: Hold for SBP/HR < HOLD for SBP < : 90 HOLD for HR < : 60 phenytoin [Dilantin Infatabs] 50 mg Tablet,Chewable 100 mg PO BID 30 Days Qty: 120 0RF valproic acid (as sodium salt) 250 mg/5 mL (5 mL) Solution 500 mg PO BID 30 Days Qty: 600 0RF valproic acid (as sodium salt) 250 mg/5 mL (5 mL) Solution 625 mg PO DAILY@1200 30 Days 0RF doxycycline hyclate 100 mg tablet 100 mg PO BID Qty: 10 0RF Continued multivitamin Tablet 1 tab PO DAILY 0RF acetaminophen 325 mg Tablet 650 mg PO BID 0RF acetaminophen 325 mg Tablet 650 mg PO Q4H PRN (Reason: Pain) 0RF magnesium hydroxide [Milk of Magnesia] 400 mg/5 mL Suspension 30 ml PO DAILY PRN (Reason: Constipation) 0RF mirtazapine 30 mg Tablet 30 mg PO BEDTIME 0RF levothyroxine 125 mcg Tablet 125 mcg PO DAILY 0RF docusate sodium [Colace] 100 mg Capsule 100 mg PO BID 0RF sertraline [Zoloft] 50 mg Tablet 50 mg PO DAILY 0RF risperidone [Risperdal] 1 mg Tablet 1 mg PO BID 0RF risperidone 0.5 mg Tablet 0.5 mg PO BEDTIME 0RF omeprazole 20 mg Tablet,Delayed Release (Dr/Ec) 20 mg PO DAILY 0RF Changed tamsulosin 0.4 mg Capsule 0.8 mg PO BEDTIME Qty: 0 0RF Discontinued phenytoin sodium extended 100 mg Capsule 100 mg PO BID 0RF divalproex 500 mg Tablet,Delayed Release (Dr/Ec) 1,000 mg PO DAILY 0RF divalproex 125 mg Capsule, Delayed Rel Sprinkle 625 mg PO BEDTIME 0RF metoprolol tartrate 25 mg Tablet 12.5 mg PO BID 0RF Discharge Orders: Discharge Order (Routine); Ordered 10/29/21 Ordered By: Rosie Saravanan Diet: other Activity on Discharge: As tolerated Stand Alone Forms: Patient Portal Discharge page Activity Restrictions/Additional Instructions: Liquid Consistency and Strategies for Safe Swallow: Liquid Intake Recommendation: Thin Liquid Intake Strategies: Small Sips No Straws Solid Food Consistency: Dietary Recommendations: Pureed (NDD1) Oral Medication Intake: Crushed with Puree Please contact the pharmacy regarding appropriate crushable or liquid drug formulations that are available whenever modified delivery is recommended. Compensatory Strategies and Precautions to be Taken for Safe Swallow: Sitting Upright (90 deg) No Straw Small Bites and Sips Alternate Liquids/Solids Rate of Ingestion Change Oral Check Supervision While Eating and Drinking for Safe Swallow: Total Assistance (1:1) Swallowing Recommended Treatments: Compens. Strategy Educat. Recommendation for Speech: Inpatient Speech Therapy Care Plan Goals: Resolution of symptoms Health Concerns: Aspiration pneumonia Plan of Treatment: Continue doxycycline as prescribed Seizure precautions Assessment: See discharge summary
[2021-10-29 15:22] VITALS: BP 142/65; PULSE 99; RESP 20; TEMP 36.9; O2SAT 97
--- NOTE | 2021-10-29 15:32 | PC.NURSE ---
No urine output recorder this shift, provider notified and verbal order received to place melton cath. Cathater #[id number] placed - draining dark yellow urine, patient tolerated the procedure well.
== END 2021-10-29 17:21 | DRG 177 ==
LOC: HO.ED 14:46 → HO.EDOVER 16:48 → HO.IMC 18:23
PROVIDERS: Physician Assistant Medical; Admitting Provider Nurse Practitioner Acute Care; Emergency Provider Internal Medicine; PCP Family Medicine; Visit Provider Nurse Practitioner Acute Care
DX: J69.0 Pneumonitis due to inhalation of food and vomit (principal); U07.1 COVID-19; J96.01 Acute respiratory failure with hypoxia; E03.9 Hypothyroidism, unspecified; I10 Essential (primary) hypertension; D72.829 Elevated white blood cell count, unspecified; N40.0 Benign prostatic hyperplasia without lower urinary tract symptoms; R13.10 Dysphagia, unspecified; K21.9 Gastro-esophageal reflux disease without esophagitis; R00.0 Tachycardia, unspecified; G40.909 Epilepsy, unspecified, not intractable, without status epilepticus; F03.90 Unspecified dementia, unspecified severity, without behavioral disturbance, psychotic disturbance, mood disturbance, and anxiety; F32.A Depression, unspecified; Z87.820 Personal history of traumatic brain injury; Z79.890 Hormone replacement therapy; Z79.899 Other long term (current) drug therapy; Z66 Do not resuscitate
CPT/HCPCS: 36415; 71045; 80048; 80053; 80164; 80185; 81001; 83605; 84484; 85007; 85025; 85027; 87040; 87635; 92526; 92610; 93005; 94640; 96365; 96375; 99284; 99285; J1100; J2543